=== PATIENT | female | born 1950 | race African-American/Black ===

== ENCOUNTER → 2016-10-21 | Outpatient (CLI) | payer MEDICARE | LOC: OD 16:28 | DX: Z12.4 Encounter for screening for malignant neoplasm of cervix (principal) | CPT/HCPCS: 88142 ==

== ENCOUNTER → 2016-11-06 | Outpatient (CLI) | payer MEDICARE ==
[2016-11-06 11:47] LABS: ALANINE AMINOTRANSFERASE 23 U/L (9-52); ALBUMIN 3.8 g/dL (3.5-5.0); ALKALINE PHOSPHATASE 80 U/L (38-126); ANION GAP 10 (5-19); ASPARTATE AMINO TRANSFERASE 17 U/L (14-36); BILIRUBIN,DIRECT 0.3 mg/dL (0.0-0.4); BILIRUBIN,TOTAL 0.4 mg/dL (0.2-1.3); BLOOD UREA NITROGEN 25 mg/dL (7-20); CALCIUM 9.4 mg/dL (8.4-10.2); CARBON DIOXIDE 24 mmol/L (22-30); CHLORIDE 107 mmol/L (98-107); CHOLESTEROL 175.23 mg/dL (0-200); CREATININE RESULT 1.22 mg/dL (0.52-1.25); Direct HDL 56 mg/dL (>40); GLUCOSE 102 mg/dL (75-110); POTASSIUM 4.5 mmol/L (3.6-5.0); SODIUM 141.3 mmol/L (137-145); TOTAL PROTEIN 7.7 g/dL (6.3-8.2); TRIGLYCERIDES 133 mg/dL (<150)
[2016-11-06 11:58] LABS: DIRECT LDL 103 mg/dL (<100)
== END ==
LOC: OD 09:40
DX: Z01.419 Encounter for gynecological examination (general) (routine) without abnormal findings (principal); R73.09 Other abnormal glucose; Z13.1 Encounter for screening for diabetes mellitus; Z13.228 Encounter for screening for other metabolic disorders; E78.00 Pure hypercholesterolemia, unspecified
CPT/HCPCS: 36415; 80053; 80061; 83036

== ENCOUNTER → 2017-02-03 | Outpatient (CLI) | payer MEDICARE ==
--- NOTE | 2017-02-03 19:16 | WOMENS IMAGING REPORT ---
EXAM DESCRIPTION: 3D SCREENING MAMMO BILAT COMPLETED DATE/TIME: 02/03/2017 7:27 am REASON FOR STUDY: SCREENING MAMMO Z12.31 ENCNTR SCREEN MAMMOGRAM FOR MALIGNANT NEOPLASM OF RANDEE COMPARISON: Multiple since 2008 TECHNIQUE: Standard craniocaudal and mediolateral oblique views of each breast recorded using digita l acquisition and breast tomosynthesis. LIMITATIONS: None. FINDINGS: Findings present which are benign by mammographic criteria. No suspicious masses, calcifi cations or architectural distortion. Pertinent benign findings: Benign calcified left breast fibroadenoma 12 o'clock position Read with the assistance of CAD. .[facility] - R2 Cenova Version 1.3 .[facility] - R2 Cenova Version 1.3 .[facility] - R2 Cenova Version 2.4 .[facility] [place] R2 Cenova Version 2.4 .[facility] - R2 System Administrator Version 9.2 Benign mammographic findings may include one or more of the following: Smooth masses, popcorn/rim/co arse calcifications, asymmetries, post-procedure changes, and lesions with long-standing stability. IMPRESSION: BENIGN MAMMOGRAPHIC FINDINGS. BIRADS 2 BREAST DENSITY: b. There are scattered areas of fibroglandular density. BIRAD: 2 BENIGN FINDING(S) RECOMMENDATION: RECOMMENDATION: ROUTINE SCREENING Please continue yearly bilateral screening tomosynthesis in January 2018 COMMENT: The patient has been notified of the results by letter per MQSA requirements. Additional no tification policies are in place for contacting patient with suspicious or incomplete findings. Quality ID #[id number]: The [employer] recommends an annual screening mammogram for women aged 40 years or over. This facility utilizes a reminder system to ensure that all patients receive reminder letters, and/or direct phone calls for appointments. This includes reminders for routine scr eening mammograms, diagnostic mammograms, or other Breast Imaging Interventions when appropriate. Th is patient will be placed in the appropriate reminder system. The [employer] (ACR) has developed recommendations for screening MRI of the breast s in certain patient populations, to be used in conjunction with mammography. Breast MRI surveillanc e may be appropriate for women with more than 20% lifetime risk of developing breast cancer as deter mined by genetic testing, significant family history of the disease, or history of mantle radiation f or Hodgkins Disease. ACR Practice Guidelines 2008. DBT Technology DBT is a type of tomographic mammography. With conventional mammography, overlapping breast tissue ma y make lesions difficult to detect, even with good compression. DBT uses an x-ray tube that rotates a round the breast, taking images at different angles. These images are then combined to create thin sl ices of the breast that the radiologist can view as a 3D reconstruction. The GrabCAD unit can perform full-field digital mammograms (2D imaging); or DBT (3D imaging); or both, in a combination mode that quickly performs both the mammogram and the tomosynthesis scan while the breast is still compressed. PQRS 6045F: Fluoroscopic imaging is not utilized for breast tomosynthesis. TECHNICAL DOCUMENTATION: FINDING NUMBER: (1) ASSESSMENT: (1) JOB ID: [id number] [employer]- All Rights Reserved
== END ==
LOC: WI 06:54
DX: Z12.31 Encounter for screening mammogram for malignant neoplasm of breast (principal)
CPT/HCPCS: 77063; G0202; 77067

== ENCOUNTER → 2018-02-15 | Outpatient (CLI) | payer MEDICARE ==
--- NOTE | 2018-02-16 15:18 | WOMENS IMAGING REPORT ---
EXAM DESCRIPTION: 3D SCREENING MAMMO BILAT COMPLETED DATE/TIME: 02/15/2018 10:32 am REASON FOR STUDY: BILATERAL SCREENING MAMMO/Z12.31 Z12.31 ENCNTR SCREEN MAMMOGRAM FOR MALIGNANT EDDI PLASM OF RANDEE COMPARISON: Multiple since 2008 TECHNIQUE: Standard craniocaudal and mediolateral oblique views of each breast recorded using digita l acquisition and breast tomosynthesis. LIMITATIONS: None. FINDINGS: Findings present which are benign by mammographic criteria. No suspicious masses, calcifi cations or architectural distortion. Pertinent benign findings: Stable benign calcified fibroadenoma left breast 12 o'clock position Read with the assistance of CAD. .[facility] - R2 Cenova Version 1.3 .[facility] Imaging - R2 Cenova Version 1.3 .[facility] - R2 Cenova Version 2.4 .[facility] - R2 Cenova Version 2.4 .[facility] - R2 Rehabilitation Caseworker Version 9.2 Benign mammographic findings may include one or more of the following: Smooth masses, popcorn/rim/co arse calcifications, asymmetries, post-procedure changes, and lesions with long-standing stability. IMPRESSION: BENIGN MAMMOGRAPHIC FINDINGS. BIRADS 2 BREAST DENSITY: b. There are scattered areas of fibroglandular density. BIRAD: 2 BENIGN FINDING(S) RECOMMENDATION: RECOMMENDATION: ROUTINE SCREENING Please continue yearly bilateral screening mammography/tomosynthesis in January 2019 COMMENT: The patient has been notified of the results by letter per SA requirements. Additional no tification policies are in place for contacting patient with suspicious or incomplete findings. Quality ID #225: The [employer] recommends an annual screening mammogram for women aged 40 years or over. This facility utilizes a reminder system to ensure that all patients receive reminder letters, and/or direct phone calls for appointments. This includes reminders for routine scr eening mammograms, diagnostic mammograms, or other Breast Imaging Interventions when appropriate. Th is patient will be placed in the appropriate reminder system. The [employer] (ACR) has developed recommendations for screening MRI of the breast s in certain patient populations, to be used in conjunction with mammography. Breast MRI surveillanc e may be appropriate for women with more than 20% lifetime risk of developing breast cancer as deter mined by genetic testing, significant family history of the disease, or history of mantle radiation f or Hodgkins Disease. ACR Practice Guidelines 2008. DBT Technology DBT is a type of tomographic mammography. With conventional mammography, overlapping breast tissue ma y make lesions difficult to detect, even with good compression. DBT uses an x-ray tube that rotates a round the breast, taking images at different angles. These images are then combined to create thin sl ices of the breast that the radiologist can view as a 3D reconstruction. The Hologic unit can perform full-field digital mammograms (2D imaging); or DBT (3D imaging); or both, in a combination mode that quickly performs both the mammogram and the tomosynthesis scan while the breast is still compressed. PQRS 6045F: Fluoroscopic imaging is not utilized for breast tomosynthesis. TECHNICAL DOCUMENTATION: FINDING NUMBER: (1) ASSESSMENT: (1) JOB ID: [id number] [employer]- All Rights Reserved Reading location - IP/workstation name: [email or web address]
== END ==
LOC: WI 09:22
PROVIDERS: ATTEND Internal Medicine
DX: Z12.31 Encounter for screening mammogram for malignant neoplasm of breast (principal)
CPT/HCPCS: 77063; 77067

== ENCOUNTER 2019-01-22 22:24 | Emergency (ER) | payer MEDICARE ==
[2019-01-22] MEDS ORDERED: TRAMADOL HCL 50 MG TABLET PO ONE (22:48)
[2019-01-22] MEDS ORDERED: PREDNISONE 20 MG TABLET PO ONE (22:48)
--- NOTE | 2019-01-22 22:49 | ER Document Report ---
ED General - General Chief Complaint: Wrist Injury Stated Complaint: LEFT ARM PAIN Time Seen by Provider: 01/22/19 22:39 Primary Care Provider: MARGIE COPE MD [Primary Care Provider] - Follow up as needed Notes: Patient is a 68-year-old female that presents to the emergency department for chief complaint of left wrist pain. Patient reports that she has been having pain in her left wrist, for several weeks, but it got worse over the past few days, she tried heating pad and stie-gxw-qhndrop medications without much relief of her pain so she decided come to the emergency department. She cannot think of any particular trauma. Her daughter thinks that she may be having carpal tunnel syndrome. She is been having some tingling in her thumb index and middle finger of the left hand. She currently rates her pain as a 6 out of 10 describes as an aching sensation that does radiate into her hand. She is noticed a little bit of swelling to the area, but again no injury. Denies any recent fevers, chills, chest pain, shortness of breath, nausea, vomiting or abdominal pain. Past Medical History: Hypertension, obesity Past Surgical History: Denies any recent or pertinent surgical history Social History: Lives at home with family, denies tobacco, alcohol or drug use. Family History: Reviewed and noncontributory for presenting illness Allergies: Reviewed, see documented allergy list. REVIEW OF SYSTEMS: Other than noted above, the 12 point review of systems was reviewed with the patient and were negative, all pertinent findings are included in the HPI. PHYSICAL EXAMINATION: Vital signs reviewed, nursing noted reviewed. GENERAL: Elderly, obese female, no acute distress but appears to be in mild pain. HEAD: Atraumatic, normocephalic. EYES: Eyes appear normal, extraocular movements intact, sclera anicteric, conjunctiva are normal. ENT: nares patent, oropharynx clear without exudates. Moist mucous membranes. NECK: Normal range of motion, supple without lymphadenopathy LUNGS: Breath sounds clear to auscultation bilaterally and equal. No wheezes rales or rhonchi. HEART: Regular rate and rhythm without murmurs ABDOMEN: Soft, nontender, normoactive bowel sounds. No rebound, guarding, or rigidity. No masses appreciated. EXTREMITIES: The left wrist is tender to palpate, but no gross deformity, there is no ecchymosis or edema appreciated on exam, she does have a positive Tinel sign on the left, however her sensation is intact and equal bilaterally in all the fingers, cap refill less than 3 seconds. Distal pulses are +2/4 bilaterally in all extremities. The rest the patient's extremity exam is grossly unremarkable with the exception of chronic bilateral lower extremity edema that is equal, and 2+. NEUROLOGICAL: No focal neurological deficits. Moves all extremities spontaneously Motor and sensory grossly intact on exam. PSYCH: Normal mood, normal affect. SKIN: Warm, Dry, normal turgor, no rashes or lesions noted on exposed skin TRAVEL OUTSIDE OF THE [place] IN LAST 30 DAYS: No - Related Data Allergies/Adverse Reactions: No Known Allergies Allergy (Unverified 01/22/19 22:33) Past Medical History - Social History Smoking Status: Never Smoker Family History: Reviewed & Not Pertinent Patient has suicidal ideation: No Patient has homicidal ideation: No - Past Medical History Cardiac Medical History: Reports: Hx Hypertension Physical Exam - Vital signs Vitals: BP Pulse Ox 149/93 H 96 01/22/19 22:30 01/22/19 22:30 Course - Re-evaluation Re-evalutation: Patient seen and examined, vital signs reviewed, patient's clinical exam seems most consistent with carpal tunnel syndrome, x-rays are negative of her wrist with the exception of arthritis noted. Patient be placed in a cock-up splint, given prednisone, and tramadol for pain. She is advised to follow-up with orthopedics if her symptoms are not improving. Patient was agreed with this plan of care and discharged home. - Vital Signs Vital signs: Temp Pulse Resp BP Pulse Ox 98.8 F 18 149/93 H 97 01/22/19 22:41 01/22/19 22:31 01/22/19 22:30 01/22/19 22:31 Discharge - Discharge Clinical Impression: Left wrist pain Condition: Stable Disposition: HOME, SELF-CARE Instructions: Carpal Tunnel Syndrome ([facility]) Prescriptions: Prednisone 40 mg PO DAILY #16 tablet Tramadol HCl [Ultram] 50 mg PO Q8H PRN #15 tablet PRN Reason: wrist pain Referrals: MARGIE COPE MD [Primary Care Provider] - Follow up as needed ORLANDO ROSALES JR, DO [ACTIVE PROVISIONAL STAFF] - Follow up in 3-5 days
[2019-01-22] MEDS ORDERED: HYDROCODONE/ACETAMINOPHEN 5-325 MG (6 TAB/ER DISP) PO PRN (23:12)
--- NOTE | 2019-01-22 23:21 | RADIOLOGY REPORT (SQ) ---
EXAM DESCRIPTION: XR WRIST 3 OR MORE VIEWS COMPLETED DATE/TME: 01/22/2019 22:33 CLINICAL HISTORY: 68 years, Female, swelling, bone tenderness COMPARISON: None. NUMBER OF VIEWS: TECHNIQUE: LIMITATIONS: None. FINDINGS: 3 views of the left wrist were obtained. There are degenerative changes involving the radiocarpal joint. There is calcification involving the triangular fibrocartilage. There are degenerative changes involving the first carpometacarpal joint. No fracture or dislocation. IMPRESSION: Degenerative changes as described. 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 copyright 2010 [employer]- All Rights Reserved
[2019-01-22 23:39] VITALS: BP 145/97
== END 2019-01-22 23:36 | disposition home or self-care (01) ==
LOC: ER 22:24
DX: M25.532 Pain in left wrist (principal); I10 Essential (primary) hypertension; E66.9 Obesity, unspecified
CPT/HCPCS: 99283; 73110; L3908 ×2; A9270 ×3; J7512

== ENCOUNTER → 2019-03-08 | Outpatient (CLI) | payer MEDICARE ==
--- NOTE | 2019-03-08 09:55 | WOMENS IMAGING REPORT ---
EXAM DESCRIPTION: 3D SCREENING MAMMO BILAT COMPLETED DATE/TIME: 03/08/2019 8:30 am REASON FOR STUDY: Z12.31 ENCOUNTER FOR SCREENING MAMMOGRAM FOR MALIGNANT NEOPLASM OF BREAST Z12.31 ENCNTR SCREEN MAMMOGRAM FOR MALIGNANT NEOPLASM OF RANDEE COMPARISON: 2015- 2017 EXAM PARAMETERS: Standard craniocaudal and mediolateral oblique views of each breast recorded using digital acquisition and breast tomosynthesis. Read with the assistance of CAD. .[facility] - [employer] Television Host Version 9.2 LIMITATIONS: None. FINDINGS: Findings present which are benign by mammographic criteria. No suspicious masses, calcific ations or architectural distortion. Pertinent benign findings: Left fibroadenoma. Benign mammographic findings may include one or more of the following: Smooth masses, popcorn/rim/coa rse calcifications, asymmetries, post-procedure changes, and lesions with long-standing stability. IMPRESSION: BENIGN MAMMOGRAPHIC FINDINGS. BIRADS 2 BREAST DENSITY: b. There are scattered areas of fibroglandular density. BIRAD: ASSESSMENT: 2 BENIGN FINDING(S) RECOMMENDATION: ROUTINE SCREENING COMMENT: The patient has been notified of the results by letter per SA requirements. Additional no tification policies are in place for contacting patient with suspicious or incomplete findings. Quality ID #[id number]: The [employer] recommends an annual screening mammogram for women aged 40 years or over. This facility utilizes a reminder system to ensure that all patients receive reminder letters, and/or direct phone calls for appointments. This includes reminders for routine scr eening mammograms, diagnostic mammograms, or other Breast Imaging Interventions when appropriate. Th is patient will be placed in the appropriate reminder system. TECHNICAL DOCUMENTATION: FINDING NUMBER: (1) ASSESSMENT: (1) JOB ID: [id number] [employer]- All Rights Reserved Reading location - IP/workstation name: [email or web address]
== END ==
LOC: WI 07:47
PROVIDERS: ATTEND Internal Medicine
DX: Z12.31 Encounter for screening mammogram for malignant neoplasm of breast (principal)
CPT/HCPCS: 77063; 77067

== ENCOUNTER 2019-08-31 01:42 | Inpatient (IN) | payer MEDICARE ==
[2019-08-31] MEDS ORDERED: IPRATROPIUM/ALBUTEROL 0.5-2.5 MG/3 ML AMPUL NEB ONE ×2 (01:50→02:05)
[2019-08-31] MEDS ORDERED: METHYLPREDNISOLONE INJ 125 MG/2 ML SDV IV ONE (02:06)
[2019-08-31 02:19] LABS: ABSOLUTE BASOPHILS # (AUTO) 0.1 10^3/uL (0.0-0.2); ABSOLUTE EOSINOPHILS # (AUTO) 0.2 10^3/uL (0.0-0.6); ABSOLUTE LYMPHOCYTES (AUTO) 3.7 10^3/uL (0.5-4.7); ABSOLUTE MONOCYTES (AUTO) 0.9 10^3/uL (0.1-1.4); ABSOLUTE NEUT (AUTO) 2.2 10^3/uL (1.7-8.2); BASOPHILS % (AUTO) 0.8 % (0-2); EOSINOPHILS % (AUTO) 3.2 % (0-6); HEMATOCRIT 37.4 % (36.0-47.0); HEMOGLOBIN 12.5 g/dL (12.0-15.5); MEAN CORPUSCULAR HEMOGLOBIN 29.5 pg (27.0-33.4); MEAN CORPUSCULAR HGB CONC 33.5 g/dL (32.0-36.0); MEAN CORPUSCULAR VOLUME 88 fl (80-97); MONOCYTES % (AUTO) 13.1 % (3-13); PLATELET COUNT 223 10^3/uL (150-450); RED BLOOD COUNT 4.24 10^6/uL (3.72-5.28); RED CELL DISTRIBUTION WIDTH 15.7 % (11.5-14.0); SEGMENTED NEUTROPHILS % (AUTO) 30.9 % (42-78); TOTAL CELLS COUNTED % (AUTO) 100 %; WHITE BLOOD COUNT 7.1 10^3/uL (4.0-10.5)
[2019-08-31 02:36] LABS: ALBUMIN 3.9 g/dL (3.5-5.0); ALKALINE PHOSPHATASE 133 U/L (38-126); ANION GAP 11 (5-19); ASPARTATE AMINO TRANSFERASE 72 U/L (14-36); BILIRUBIN,TOTAL 0.5 mg/dL (0.2-1.3); BLOOD UREA NITROGEN 30 mg/dL (7-20); CALCIUM 8.9 mg/dL (8.4-10.2); CARBON DIOXIDE 25 mmol/L (22-30); CHLORIDE 104 mmol/L (98-107); GLUCOSE 174 mg/dL (75-110); POTASSIUM 3.8 mmol/L (3.6-5.0); TOTAL PROTEIN 7.6 g/dL (6.3-8.2)
[2019-08-31 02:49] LABS: TROPONIN I 0.05 ng/mL
[2019-08-31] MEDS ORDERED: FUROSEMIDE INJ/PF 100 MG/10 ML SDV IV ONE (03:00)
--- NOTE | 2019-08-31 03:15 | RADIOLOGY REPORT (SQ) ---
CLINICAL INDICATION: sob cough. TECHNIQUE: A single portable AP view was obtained of the chest at 0249 hours. COMPARISON: None available. FINDINGS: The cardiomediastinal silhouette is enlarged. The lungs demonstrate chronic changes. Crowding at the bases. No focal dense consolidation. No significant pleural fluid. The visualized bones are unremarkable. IMPRESSION: Chronic changes. Mild crowding at the bases..
[2019-08-31] MEDS ORDERED: HEPARIN SOD (PORCINE) 1,000 UNIT/ML 10 ML VIAL IV ONE (03:50)
[2019-08-31] MEDS ORDERED: HEPARIN SODIUM,PORCINE/D5W 25,000 UNIT/250 ML RTUINJ IV PRN (03:51)
[2019-08-31 03:59] LABS: PROTHROMBIN TIME 14.2 SEC (11.4-15.4)
[2019-08-31 04:00] LABS: PARTIAL THROMBOPLASTIN TIME 25.2 SEC (23.5-35.8)
[2019-08-31] MEDS ORDERED: ASPIRIN 81 MG TABLET, CHEWABLE PO ONE (04:10)
--- NOTE | 2019-08-31 04:47 | ER Document Report ---
ED General - General Chief Complaint: Respiratory Distress Stated Complaint: SHORTNESS OF BREATH TRAVEL OUTSIDE OF THE [place] IN LAST 30 DAYS: No - HPI Notes: 68-year-old female history of COPD (no home O2, few exacerbations in the past, never BiPAP or intubation), hypertension, hyperlipidemia, lymphedema of left leg presents with sudden onset shortness of breath just prior to activating EMS. Patient denies having any recent cough, fever, chest pain, cardiac history, change in her chronic left lower extremity edema, PE/DVT history. History limited by respiratory distress. - Related Data Allergies/Adverse Reactions: No Known Allergies Allergy (Unverified 01/22/19 22:33) Home Medications: valsartan 320 mgdaily. hydrochlorothiazide 25 mg daily. amlodipine 10 mg daily Past Medical History - General Information source: Patient - Social History Smoking Status: Never Smoker Frequency of alcohol use: None Drug Abuse: None Family History: Reviewed & Not Pertinent Patient has homicidal ideation: No - Past Medical History Cardiac Medical History: Reports: Hx Hypertension Review of Systems - Review of Systems -: Yes ROS unobtainable due to patient's medical condition Physical Exam - Vital signs Vitals: Pulse Ox 94 08/31/19 01:49 - Notes Notes: PHYSICAL EXAMINATION: GENERAL: Obese middle-aged female appearing younger than stated age in severe respiratory distress HEAD: Atraumatic, normocephalic. EYES: Pupils equal round and appropriate constriction, sclera anicteric, conjunctiva are normal. ENT: nares patent, moist mucous membranes. NECK: Normal range of motion, supple without lymphadenopathy LUNGS: Decreased air movement in all lung chiang with expiratory wheezing, very tachypneic, struggling to say few word sentences, managing secretions, no tripoding HEART: Regular rhythm, tachycardic rate, no murmurs rubs or gallops ABDOMEN: Soft, nontender, no guarding, no masses, no CVAT EXTREMITIES: Normal range of motion, diffuse edema of entire left leg with overlying skin thickening consistent with chronic lymphedema NEUROLOGICAL: Awake, alert, speech appropriate for clinical status, moves all extremities spontaneously. PSYCH: Normal mood, normal affect. SKIN: Warm, Dry, normal turgor, no rashes or lesions noted. Course - Re-evaluation Re-evalutation: 08/31/19 01:46 History limited by respiratory distress. Symptoms improved with serial labs, mag, and IM epi given by EMS and wheezing on exam with poor air movement suggestive of COPD. But patient says that her COPD exacerbations have never been this bad in the past and has never required positive pressure ventilation. Rule out ACS, acute pulmonary edema/new onset CHF, PE. Patient quickly improved on BiPAP. 08/31/19 04:47 Patient remains greatly improved on BiPAP, work of breathing is significantly improved, no signs of impending need for intubation, but will continue to monitor closely. Patient became very tachypneic when RN placed her on bedpan s till on BiPAP which suggest that patient is not ready to be weaned off of BiPAP yet. Patient's BNP markedly elevated and troponin mildly elevated, which could represent new onset of CHF or the secondary to PE causing right heart strain. Given that patient remains improved and hemodynamically stable the risk of patient lying flat and the likelihood of having significant motion artifact if patient goes to CT a on BiPAP made decision to anticoagulate with heparin pending imaging during daytime, possibly V/Q. I spoke to patient's daughter at patient's request less than 1 hour after her arrival and updated her on her status. - Vital Signs Vital signs: Temp Pulse Resp BP Pulse Ox 97.1 F 23 H 148/80 H 98 08/31/19 02:13 08/31/19 04:55 08/31/19 02:19 08/31/19 04:55 - Laboratory Result Diagrams: 08/31/19 02:05 08/31/19 02:05 Laboratory results interpreted by me: 08/31/19 08/31/19 08/31/19 02:05 02:05 02:05 RDW 15.7 H Lymph % (Auto) 52.0 H Refugio % (Auto) 13.1 H Seg Neutrophils % 30.9 L D-Dimer BUN 30 H Creatinine 1.58 H Est GFR ( Amer) 39 L Est GFR (MDRD) Non-Af 32 L Glucose 174 H Phosphorus AST 72 H ALT 66 H Alkaline Phosphatase 133 H NT-Pro-B Natriuret Pep 3850 H TSH 08/31/19 08/31/19 08/31/19 02:05 02:05 02:05 RDW Lymph % (Auto) Refugio % (Auto) Seg Neutrophils % D-Dimer 2.43 H BUN Creatinine Est GFR ( Amer) Est GFR (MDRD) Non-Af Glucose Phosphorus 5.1 H AST ALT Alkaline Phosphatase NT-Pro-B Natriuret Pep TSH 6.20 H - EKG Interpretation by Me Additional EKG results interpreted by me: 08/31/19 02:10 Heart rate 100, sinus tachycardia, no significant ST elevations or depressions, T wave inversions in aVL and I, anterior Q waves. EKG obtained at 2:06 AM under incorrect name Vilma Best, report not showing up in [facility] Discharge - Discharge Clinical Impression: Respiratory failure Qualifiers: Chronicity: acute Respiratory failure complication: hypercapnia Qualified Code (s): J96.02 - Acute respiratory failure with hypercapnia Condition: Serious Disposition: ADMITTED INPATIENT Admitting Provider: [facility] Unit Admitted: [facility]
[2019-08-31 05:36] LABS: FREE T4 (FREE THYROXINE) 1.39 ng/dL (0.78-2.19)
[2019-08-31 05:49] LABS: VENOUS BLOOD BASE EXCESS -1.9 mmol/L; VENOUS BLOOD HCO3 23.9 mmol/L (20-32); VENOUS BLOOD PCO2 44.8 mmHg (35-63); VENOUS BLOOD PH 7.35 (7.30-7.42)
[2019-08-31 05:50] LABS: THYROID STIMULATING HORMONE 6.2 uIU/mL (0.47-4.68)
[2019-08-31] MEDS ORDERED: ENOXAPARIN SODIUM INJ 100 MG/1 ML DISP.SYRIN SUBCUT SCH ×2 (06:00→18:00)
[2019-08-31 06:09] LABS: PHOSPHORUS 5.1 mg/dL (2.5-4.5)
--- NOTE | 2019-08-31 06:27 | RADIOLOGY REPORT (SQ) ---
EXAM: US Retroperitoneal Complete, Renal EXAM DATE/TIME: 08/31/2019 5:43 AM CLINICAL HISTORY: The patient is 68 years old and is Female; KIDNEY FAILURE TECHNIQUE: Real-time limited ultrasound of the retroperitoneum with image documentation. COMPARISON: No relevant prior studies available. FINDINGS: LIMITATIONS: Suboptimal exam secondary to bowel gas and patient body habitus. RIGHT KIDNEY: The right kidney measures 13.1 cm in length and is increased in echogenicity. There is a simple cyst in the right kidney measuring 3.1 x 3.8 x 2.5 cm. There is a small echogenic focus in the right kidney measuring 8 mm. This may represent a focus of calcification in the renal cortex or a small intrarenal stone. No hydronephrosis. LEFT KIDNEY: The left kidney measures 15.0 cm in length and is increased in echogenicity. There is a simple cyst in the left kidney measuring 6.0 x 5.4 x 3.9 cm. There is a small echogenic focus measuring 10 mm. This may represent an intrarenal stone. No hydronephrosis. BLADDER: The urinary bladder is unremarkable. No obvious bladder mass or stone. OTHER FINDINGS: There is an area of shadowing in the region of the gallbladder fossa. The appearance suggests a gallbladder filled with stones. What appears to be the gallbladder wall is thickened, measuring 7 mm. IMPRESSION: 1. Bilateral kidneys are increased in echogenicity, suggesting chronic medical renal disease. 2. Echogenic foci in the kidneys may represent intrarenal stones. There is no hydronephrosis. 3. Bilateral simple renal cysts. 4. Area of shadowing in the region of the gallbladder fossa. The appearance suggests a gallbladder filled with stones. There is also suggestion of gallbladder wall thickening.
[2019-08-31] MEDS: ALBUTEROL SULFATE 0.083% NEB 2.5 MG/3 ML AMPUL NEB SCH ×3 (06:35→12:56)
[2019-08-31 07:09] LABS: ARTERIAL BLOOD BASE EXCESS -3.2 mmol/L; ARTERIAL BLOOD FIO2 30%; ARTERIAL BLOOD H2CO3 1.08 mmol/L (1.05-1.35); ARTERIAL BLOOD HCO3 21.2 mmol/L (20-24); ARTERIAL BLOOD O2 SATURATION 97.9 % (94-98); ARTERIAL BLOOD PH 7.39 (7.35-7.45); ARTERIAL BLOOD PO2 106.4 mmHg (80-100); ARTERIAL BLOOD TOTAL CO2 22.3 mmol/L (21-25)
[2019-08-31 07:22] LABS: APPEARANCE,URINE CLEAR; BILIRUBIN,URINE NEGATIVE (NEGATIVE); COLOR,URINE COLORLESS; GLUCOSE, URINE NEGATIVE (NEGATIVE); KETONES,URINE NEGATIVE (NEGATIVE); LEUKOCYTE ESTERASE,URINE NEGATIVE (NEGATIVE); NITRITE,URINE NEGATIVE (NEGATIVE); PROTEIN,URINE NEGATIVE (NEGATIVE); URINE SPECIFIC GRAVITY 1.005; UROBILINOGEN,URINE NEGATIVE mg/dL (<2.0)
[2019-08-31 07:38] LABS: URINE AMPHETAMINES SCREEN NEGATIVE; URINE BARBITURATES SCREEN NEGATIVE; URINE BENZODIAZEPINES SCREEN NEGATIVE; URINE COCAINE SCREEN NEGATIVE; URINE MARIJUANA (THC) SCREEN NEGATIVE; URINE METHADONE SCREEN NEGATIVE; URINE PHENCYCLIDINE SCREEN NEGATIVE
[2019-08-31 07:47] LABS: CREATINE KINASE MB 2.53 ng/mL (<4.55); TROPONIN I 0.074 ng/mL
[2019-08-31 11:46] LABS: INTERNATIONAL RATION (INR) 1.12; PROTHROMBIN TIME 14.4 SEC (11.4-15.4)
[2019-08-31 11:47] LABS: PARTIAL THROMBOPLASTIN TIME 31.9 SEC (23.5-35.8)
--- NOTE | 2019-08-31 12:01 | RADIOLOGY REPORT (SQ) ---
EXAM DESCRIPTION: NM LUNG PERFUSION SCAN IMAGES COMPLETED DATE/TIME: 08/31/2019 11:49 am REASON FOR STUDY: SOB, COUGH COMPARISON: None. RADIONUCLIDE AND DOSE: 5.5 millicuries TC-99m MAA The route of agent administration: Intravenous TECHNIQUE: Eight views of the lungs acquired following injection of MAA. LIMITATIONS: None. FINDINGS: PERFUSION: Perfusion images with normal homogenous activity and no wedge-shaped or segment al defects. OTHER: No other significant finding. IMPRESSION: NORMAL PERFUSION LUNG SCAN. TECHNICAL DOCUMENTATION: JOB ID: [id number] [employer]- All Rights Reserved Reading location - IP/workstation name: [email or web address]
[2019-08-31 12:06] LABS: CREATINE KINASE MB 2.88 ng/mL (<4.55)
[2019-08-31 12:11] LABS: TROPONIN I 0.059 ng/mL
[2019-08-31] MEDS ORDERED: ALBUTEROL SULFATE 0.083% NEB 2.5 MG/3 ML AMPUL NEB PRN (12:57)
[2019-08-31 14:25] LABS: ANION GAP 13 (5-19); BLOOD UREA NITROGEN 30 mg/dL (7-20); CALCIUM 9.5 mg/dL (8.4-10.2); CARBON DIOXIDE 22 mmol/L (22-30); CHLORIDE 104 mmol/L (98-107); GLUCOSE 195 mg/dL (75-110); POTASSIUM 3.7 mmol/L (3.6-5.0)
[2019-08-31 19:24] LABS: CREATINE KINASE MB 3.37 ng/mL (<4.55); TROPONIN I 0.047 ng/mL
--- NOTE | 2019-08-31 20:00 | PDOC H&P ---
History of Present Illness Admission Date/PCP: 08/31/19 05:17 MARGIE COPE MD History of Present Illness: MELY WILD is a 68 year old female, She came to the emergency room [facility] this morning for evaluation of shortness of breath, in the emergency room she was evaluated, she was found to be wheezing, it was assumed she has COPD, she has no history of COPD, she was treated with Solu-Medrol, bronchodilators, the breathing was supported with a noninvasive positive pressure ventilation,BIPAP, blood work demonstrated elevated B type natruretic peptide, the serum creatinine was elevated, she also was empirically started on intravenous heparin for presumptive PE. She has a history of hypertension, chronic lymphedema of the lower extremities and she is also obese. When I saw the patient the presentation was more consistent with CHF picture, she admitted to orthopnea. A transthoracic echocardiogram was done, it demonstrated dilated left ventricle, dilated left atrium, decreased ejection fraction of left ventricle suggestive of acute systolic heart failure this is new onset for this patient, she has no history of cardiomyopathy. Past Medical History Cardiac Medical History: Reports: Hypertension, Other - Chronic lymphedema of the lower extremities Endocrine Medical History: Reports: Obesity Social History Smoking Status: Never Smoker Frequency of Alcohol Use: None Hx Recreational Drug Use: No Drugs: None Hx Prescription Drug Abuse: No Family History Family History: Reviewed & Not Pertinent Parental Family History Reviewed: Yes Children Family History Reviewed: Yes Sibling(s) Family History Reviewed.: Yes Medication/Allergy Home Medications: Hydrochlorothiazide [Hydrodiuril 25 mg Tablet] 25 mg PO QAM 08/31/19 RX: Amlodipine Besylate [Norvasc 10 mg Tablet] 10 mg PO DAILY 08/31/19 RX: Valsartan 320 mg PO DAILY 08/31/19 Allergies/Adverse Reactions: No Known Allergies Allergy (Unverified 01/22/19 22:33) Review of Systems Constitutional: ABSENT: chills, fever(s), headache(s), weight gain, weight loss Eyes: ABSENT: visual disturbances Ears: ABSENT: hearing changes Cardiovascular: PRESENT: dyspnea on exertion, edema, orthropnea Respiratory: ABSENT: cough, hemoptysis Gastrointestinal: ABSENT: abdominal pain, constipation, diarrhea, hematemesis, hematochezia, nausea, vomiting Genitourinary: ABSENT: dysuria, hematuria Musculoskeletal: ABSENT: joint swelling Integumentary: ABSENT: rash, wounds Neurological: ABSENT: abnormal gait, abnormal speech, confusion, dizziness, focal weakness, syncope Psychiatric: ABSENT: anxiety, depression, homidical ideation, suicidal ideation Endocrine: ABSENT: cold intolerance, heat intolerance, menstrual abnormalities, polydipsia, polyuria Hematologic/Lymphatic: ABSENT: easy bleeding, easy bruising, lymphadenopathy Physical Exam Vital Signs: Temp Pulse Resp BP Pulse Ox 97.7 F 69 18 145/72 H 99 08/31/19 13:32 08/31/19 16:18 08/31/19 16:18 08/31/19 13:32 08/31/19 13:32 Intake & Output 08/30/19 08/31/19 09/01/19 06:59 06:59 06:59 Intake Total 339 Output Total 1000 700 Balance -1000 -361 Weight 111.13 kg 108.4 kg General appearance: PRESENT: morbidly obese Head exam: PRESENT: atraumatic, normocephalic Eye exam: PRESENT: conjunctiva pink, EOMI, PERRLA Ear exam: PRESENT: normal external ear exam Mouth exam: PRESENT: moist, tongue midline Neck exam: PRESENT: full ROM Respiratory exam: PRESENT: crackles Cardiovascular exam: PRESENT: RRR, +S1, +S2, systolic murmur, tachycardia Vascular exam: PRESENT: normal capillary refill GI/Abdominal exam: PRESENT: normal bowel sounds, soft Rectal exam: PRESENT: deferred Extremities exam: PRESENT: pedal edema, other - Lymphedema of lower extremities, bilaterally Neurological exam: PRESENT: alert, CN II-XII grossly intact Psychiatric exam: PRESENT: appropriate affect, normal mood Skin exam: PRESENT: dry, intact, warm Results Laboratory Results: 08/31/19 02:05 08/31/19 10:45 08/31/19 08/31/19 08/31/19 02:05 02:05 02:05 WBC 7.1 RBC 4.24 Hgb 12.5 Hct 37.4 MCV 88 MCH 29.5 MCHC 33.5 RDW 15.7 H Plt Count 223 Seg Neutrophils % 30.9 L Carbonic Acid HCO3/H2CO3 Ratio ABG pH ABG pCO2 ABG pO2 ABG HCO3 ABG O2 Saturation ABG Base Excess VBG pH VBG pCO2 VBG HCO3 VBG Base Excess FiO2 Sodium 139.9 Potassium 3.8 Chloride 104 Carbon Dioxide 25 Anion Gap 11 BUN 30 H Creatinine 1.58 H Est GFR ( Amer) 39 L Glucose 174 H Calcium 8.9 Phosphorus Magnesium Total Bilirubin 0.5 AST 72 H Alkaline Phosphatase 133 H Ammonia Total Protein 7.6 Albumin 3.9 Amylase TSH 6.20 H Free T4 1.39 Urine Color Urine Appearance Urine pH Ur Specific [place] Urine Protein Urine Glucose (UA) Urine Ketones Urine Blood Urine Nitrite Ur Leukocyte Esterase Urine WBC (Auto) 08/31/19 08/31/19 08/31/19 02:05 05:35 06:45 WBC RBC Hgb Hct MCV MCH MCHC RDW Plt Count Seg Neutrophils % Carbonic Acid HCO3/H2CO3 Ratio ABG pH ABG pCO2 ABG pO2 ABG HCO3 ABG O2 Saturation ABG Base Excess VBG pH 7.35 VBG pCO2 44.8 VBG HCO3 23.9 VBG Base Excess -1.9 FiO2 Sodium Potassium Chloride Carbon Dioxide Anion Gap BUN Creatinine Est GFR ( Amer) Glucose Calcium Phosphorus 5.1 H Magnesium 2.2 Total Bilirubin AST Alkaline Phosphatase Ammonia < 8.7 L Total Protein Albumin Amylase 74 TSH Free T4 Urine Color Urine Appearance Urine pH Ur Specific [place] Urine Protein Urine Glucose (UA) Urine Ketones Urine Blood Urine Nitrite Ur Leukocyte Esterase Urine WBC (Auto) 08/31/19 08/31/19 08/31/19 06:45 06:45 10:45 WBC RBC Hgb Hct MCV MCH MCHC RDW Plt Count Seg Neutrophils % Carbonic Acid 1.08 HCO3/H2CO3 Ratio 19:1 ABG pH 7.39 ABG pCO2 36.0 ABG pO2 106.4 H ABG HCO3 21.2 ABG O2 Saturation 97.9 ABG Base Excess -3.2 VBG pH VBG pCO2 VBG HCO3 VBG Base Excess FiO2 30% Sodium 138.8 Potassium 3.7 Chloride 104 Carbon Dioxide 22 Anion Gap 13 BUN 30 H Creatinine 1.48 H Est GFR ( Amer) 42 L Glucose 195 H Calcium 9.5 Phosphorus Magnesium Total Bilirubin AST Alkaline Phosphatase Ammonia Total Protein Albumin Amylase TSH Free T4 Urine Color COLORLESS Urine Appearance CLEAR Urine pH 5.0 Ur Specific [place] 1.005 Urine Protein NEGATIVE Urine Glucose (UA) NEGATIVE Urine Ketones NEGATIVE Urine Blood NEGATIVE Urine Nitrite NEGATIVE Ur Leukocyte Esterase NEGATIVE Urine WBC (Auto) 0 08/31/19 08/31/19 08/31/19 02:05 06:45 06:45 Creatine Kinase 182 H CK-MB (CK-2) 2.53 Troponin I 0.050 0.074 NT-Pro-B Natriuret Pep 3850 H 08/31/19 08/31/19 08/31/19 10:45 10:45 18:35 Creatine Kinase 168 H 173 H CK-MB (CK-2) 2.88 Troponin I 0.059 NT-Pro-B Natriuret Pep 08/31/19 18:35 Creatine Kinase CK-MB (CK-2) 3.37 Troponin I 0.047 NT-Pro-B Natriuret Pep Impressions: Lung Scan-VQ NM 08/31/19 00:00 IMPRESSION: NORMAL PERFUSION LUNG SCAN. Renal Ultrasound 08/31/19 00:00 IMPRESSION: 1. Bilateral kidneys are increased in echogenicity, suggesting chronic medical renal disease. 2. Echogenic foci in the kidneys may represent intrarenal stones. There is no hydronephrosis. 3. Bilateral simple renal cysts. 4. Area of shadowing in the region of the gallbladder fossa. The appearance suggests a gallbladder filled with stones. There is also suggestion of gallbladder wall thickening. Chest X-Ray 08/31/19 02:03 IMPRESSION: Chronic changes. Mild crowding at the bases.. Assessment & Plan - Diagnosis (1) Acute systolic heart failure Is this a current diagnosis for this admission?: Yes Plan: Patient presented with acute respiratory distress, she requires noninvasive positive pressure ventilation, BiPAP, 2D echo consistent with CHF, this is new onset for this patient, start Coreg start Entresto, consult cardiology (2) CKD (chronic kidney disease) Qualifiers: Chronic kidney disease stage: unspecified stage Qualified Code(s): N18.9 - Chronic kidney disease, unspecified Is this a current diagnosis for this admission?: Yes Plan: Kidney ultrasound negative for hydronephrosis, suggest CKD, medical renal disease (3) Acute hypoxemic respiratory failure Is this a current diagnosis for this admission?: Yes Plan: This is most likely from acute systolic heart failure, VQ scan negative for PE, she required initially BiPAP, no longer requiring BiPAP
[2019-08-31] MEDS: SACUBITRIL/VALSARTAN 49 MG/51 MG TABLET PO SCH (21:32)
[2019-08-31] MEDS: CARVEDILOL 3.125 MG TABLET PO SCH (21:32)
[2019-08-31] MEDS: ENOXAPARIN SODIUM INJ 40 MG/0.4 ML DISP.SYRIN SUBCUT SCH (21:33)
[2019-08-31] MEDS: FUROSEMIDE INJ/PF 40 MG/4 ML SDV IV SCH (21:33)
--- NOTE | 2019-08-31 21:58 | XCELERA REPORT ---
[address] [address] Transthoracic Echocardiogram Report Name: MELY WILD Age: 68 yrs Gender: Female : 1950 Patient Status: Inpatient Patient Location: [address] [place] [address] Study Date: 08/31/2019 10:23 AM Height: 66 in Weight: 245 lb BSA: 2.2 m2 Procedure: A two-dimensional transthoracic echocardiogram with color flow and Doppler was performed. Study Quality: Fair. Reason For Study: CHF History: CHF. Ordering Physician: MARGIE COPE Performed By: Lisa Olvera Interpretation Summary The left ventricle is mildly dilated. There is mild concentric left ventricular hypertrophy. LV EF is 40% Left ventricular systolic function is moderately reduced. : By tissue dopplers There is moderate global hypokinesis of the left ventricle. There is no thrombus. No ASD ,VSD , or PFO seen. The right ventricle is mildly dilated. The right atrium is normal. The left atrial size is normal. There is no evidence of mitral valve prolapse. There is no vegetation seen on the mitral valve. There is no mitral valve stenosis. There is a moderate to severe amount of mitral regurgitation There is no aortic valve stenosis There is no LVOT obstruction. There is no aortic valvular vegetation. There is a trace to mild amount of aortic regurgitation There is no tricuspid stenosis. There is a moderate amount of tricuspid regurgitation There is moderate pulmonary hypertension by echo RVSP is 52 to 57 mm of HG , with RA mean of 10 to 15. There is no pulmonic valvular stenosis. There is a trace amount of pulmonic regurgitation The aortic root is normal size. The inferior vena cava appeared normal and decreased < 50% with respiration (RAP 10-15 mmHg) There is no pericardial effusion. MMode/2D Measurements & Calculations RVDd: 3.2 cm LVIDd: 6.4 cm FS: 21.6 % Ao root diam: 2.8 cm IVSd: 1.2 cm LVIDs: 5.0 cm EDV(Teich): 205.9 ml Ao root area: 6.2 cm2 LVPWd: 1.2 cm ESV(Teich): 117.6 ml LA dimension: 3.6 cm EF(Teich): 42.9 % Doppler Measurements & Calculations MV E max ann-marie: MV P1/2t max ann-marie: Ao V2 max: LV V1 max P.4 cm/sec 160.9 cm/sec 177.2 cm/sec 6.0 mmHg MV A max ann-marie: MV P1/2t: 33.2 msec Ao max PG: LV V1 max: 138.7 cm/sec MVA(P1/2t): 6.6 cm2 12.6 mmHg 122.9 cm/sec MV E/A: 1.2 MV dec slope: LV dP/dt: 826.0 mmHg/s 1419 cm/sec2 MV dec time: 0.12 sec PA V2 max: PI end-d ann-marie: TR max ann-marie: MV P1/2t-pr_phl: 86.9 cm/sec 125.2 cm/sec 321.2 cm/sec 33.2 msec PA max P.0 mmHg TR max P.3 mmHg Left Ventricle The left ventricle is mildly dilated. There is mild concentric left ventricular hypertrophy. LV EF is 40%. Left ventricular systolic function is moderately reduced. : By tissue dopplers. Doppler measurements suggest impaired left ventricular relaxation, which is associated with grade I/IV or mild diastolic dysfunction. There is moderate global hypokinesis of the left ventricle. There is no thrombus. No ASD ,VSD , or PFO seen. Right Ventricle The right ventricle is mildly dilated. The right ventricular systolic function is mildly reduced. Atria The right atrium is normal. The left atrial size is normal. Mitral Valve There is no evidence of mitral valve prolapse. There is no vegetation seen on the mitral valve. There is no mitral valve stenosis. There is a moderate to severe amount of mitral regurgitation. Aortic Valve There is no aortic valvular vegetation. There is no aortic valve stenosis. There is no LVOT obstruction. There is a trace to mild amount of aortic regurgitation. Tricuspid Valve There is no tricuspid stenosis. There is a moderate amount of tricuspid regurgitation. There is moderate pulmonary hypertension by echo. RVSP is 52 to 57 mm of HG , with RA mean of 10 to 15. Pulmonic Valve There is no pulmonic valvular stenosis. There is a trace amount of pulmonic regurgitation. Great Vessels The aortic root is normal size. The inferior vena cava appeared normal and decreased < 50% with respiration (RAP 10-15 mmHg). Effusions There is no pericardial effusion. : MARGIE COPE Lakshmi
[2019-09-01 05:13] LABS: HEMATOCRIT 36.2 % (36.0-47.0); HEMOGLOBIN 12.4 g/dL (12.0-15.5); MEAN CORPUSCULAR HEMOGLOBIN 29.7 pg (27.0-33.4); MEAN CORPUSCULAR HGB CONC 34.3 g/dL (32.0-36.0); MEAN CORPUSCULAR VOLUME 87 fl (80-97); PLATELET COUNT 206 10^3/uL (150-450); RED BLOOD COUNT 4.18 10^6/uL (3.72-5.28); RED CELL DISTRIBUTION WIDTH 15.4 % (11.5-14.0); WHITE BLOOD COUNT 9.8 10^3/uL (4.0-10.5)
[2019-09-01 05:40] LABS: ALBUMIN 3.9 g/dL (3.5-5.0); ALKALINE PHOSPHATASE 110 U/L (38-126); ASPARTATE AMINO TRANSFERASE 38 U/L (14-36); BILIRUBIN,TOTAL 0.6 mg/dL (0.2-1.3); CHOLESTEROL 159.77 mg/dL (0-200); TOTAL PROTEIN 7.6 g/dL (6.3-8.2); TRIGLYCERIDES 113 mg/dL (<150)
[2019-09-01 05:51] LABS: DIRECT LDL 94 mg/dL (<100)
[2019-09-01] MEDS: CARVEDILOL 3.125 MG TABLET PO SCH ×2 (06:36→17:19)
[2019-09-01] MEDS: FUROSEMIDE INJ/PF 40 MG/4 ML SDV IV SCH (09:36)
[2019-09-01] MEDS: SACUBITRIL/VALSARTAN 49 MG/51 MG TABLET PO SCH ×2 (09:36→17:19)
[2019-09-01] MEDS: ENOXAPARIN SODIUM INJ 40 MG/0.4 ML DISP.SYRIN SUBCUT SCH (09:36)
[2019-09-01 12:00] LABS: APPEARANCE,URINE CLEAR; BILIRUBIN,URINE NEGATIVE (NEGATIVE); COLOR,URINE STRAW; GLUCOSE, URINE NEGATIVE (NEGATIVE); KETONES,URINE NEGATIVE (NEGATIVE); LEUKOCYTE ESTERASE,URINE NEGATIVE (NEGATIVE); NITRITE,URINE NEGATIVE (NEGATIVE); PROTEIN,URINE NEGATIVE (NEGATIVE); URINE SPECIFIC GRAVITY 1.008; UROBILINOGEN,URINE NEGATIVE mg/dL (<2.0)
[2019-09-01] MEDS: CIPROFLOXACIN 400 MG/D5W RTU 400 MG/200 ML RTUPB IV SCH ×2 (14:27→22:04)
--- NOTE | 2019-09-01 20:08 | PDOC CONSULTATION ---
Consultation-Blank Consultation: CARDIOLOGY CONSULTATION by Dr. Gwen Russell on 09/01/2019. Patient seen at 11 AM on 09/01/2019. 60-minute spent on this patient more than 50% of time spent in direct patient care. REASON FOR CONSULTATION: Management of congestive heart failure. Consult REQUESTING PHYSICIAN: Dr. Rai. HISTORY OF PRESENT ILLNESS: Patient is a 68-year old -Greek female with known history of hypertension states that since Wednesday she has been having having sudden onset of increasing shortness of breath with PND orthopnea. There is no chest pain or discomfort there is no palpitations. There is no near- syncope or syncope. The patient denies any history of COPD and the patient is non-smoker. She was seen in the emergency room and they treated her initially for an asthmatic attack and also PE was ruled out by ventilation/perfusion scan. The patient's renal function better reduced, but the patient has no knowledge of having chronic renal insufficiency. She is not a diabetic. There is no prior history of AK or heart failure or anginal symptoms. There is no palpitations or syncope. She states that she has nightmares in the sleep off and on and also states that after a good night sleep she feels tired she also has been noted to be snoring. It is not clear if there is any witnessed apnea d uring his sleep. But the patient does have symptoms suggestive highly of obstructive sleep apnea. She has no history of diabetes mellitus or thyroid disease. She has no history of TIA or CVA. There is no prior history of pulmonary embolism. She has no fever. She has a cough which seems to be PND equal and. She states her blood pressure has been well controlled. Past Medical History Cardiac Medical History: Reports: Hypertension, Other - Chronic lymphedema of the lower extremities Endocrine Medical History: Reports: Obesity Social History Smoking Status: Never Smoker Frequency of Alcohol Use: None Hx Recreational Drug Use: No Drugs: None Hx Prescription Drug Abuse: No Family History Family History: Reviewed & Not Pertinent Parental Family History Reviewed: Yes Children Family History Reviewed: Yes Sibling(s) Family History Reviewed.: Yes Medication/Allergy Home Medications: Hydrochlorothiazide [Hydrodiuril 25 mg Tablet] 25 mg PO QAM 08/31/19 RX: Amlodipine Besylate [Norvasc 10 mg Tablet] 10 mg PO DAILY 08/31/19 RX: Valsartan 320 mg PO DAILY 08/31/19 Allergies/Adverse Reactions: No Known Allergies Allergy (Unverified 01/22/19 22:33) RESUSCITATION STATUS: The patient is a full code. Her daughter is a surrogate healthcare decision maker. Current Medications Generic Name Dose Route Start Last Admin Trade Name Freq PRN Reason Stop Dose Admin Albuterol 2.5 mg 08/31/19 12:57 Ventolin 0.083% Neb 2.5 Mg/3 Ml Ampul NEB 09/30/19 12:55 [id number] PRN SHORTNESS OF BREATH Carvedilol 3.125 mg 08/31/19 19:00 09/01/19 17:19 Coreg 3.125 Mg Tablet PO 09/30/19 18:59 3.125 mg Q12A JEFF Administration Enoxaparin Sodium 40 mg 08/31/19 20:00 09/01/19 09:36 Lovenox Inj 40 Mg/0.4 Ml Disp.Syrin SUBCUT 09/30/19 19:59 40 mg DAILY JEFF Administration Furosemide 40 mg 08/31/19 19:00 09/01/19 09:36 Lasix Inj/Pf 40 Mg/4 Ml Sdv IV 09/30/19 18:59 40 mg DAILY JEFF Administration Ciprofloxacin/Dextrose 400 mg in 200 mls @ 200 mls/hr 09/01/19 13:00 09/01/19 22:04 Cipro Rtu 400 Mg/D5w 200 Ml Premix Bag IV 09/08/19 12:59 200 mls/hr Q12 JEFF 200 mls/hr Administration Sacubitril/Valsartan 1 tab 08/31/19 20:00 09/01/19 17:19 Entresto 49 Mg/51 Mg Tablet PO 09/30/19 19:59 1 tab BID JEFF Administration Discontinued Medications Generic Name Dose Route Start Last Admin Trade Name Freq PRN Reason Stop Dose Admin Albuterol 2.5 mg 08/31/19 05:00 08/31/19 12:56 Ventolin 0.083% Neb 2.5 Mg/3 Ml Ampul NEB 09/30/19 04:59 Not Given RTQ4 JEFF Albuterol/Ipratropium Confirm 08/31/19 01:50 08/31/19 03:40 Duoneb 3 Ml Ampul Administered 08/31/19 01:51 Not Given Dose 3 ml NEB .STK-MED ONE Albuterol/Ipratropium 9 ml 08/31/19 02:05 08/31/19 03:40 Duoneb 3 Ml Ampul NEB 08/31/19 02:06 9 ml NOW ONE Administration Aspirin 324 mg 08/31/19 04:10 08/31/19 05:19 Aspirin 81 Mg Chewable Tablet PO 08/31/19 04:11 324 mg NOW ONE Administration Enoxaparin Sodium 100 mg 08/31/19 06:00 08/31/19 11:00 Lovenox Inj 100 Mg/1 Ml Disp.Syrin SUBCUT 09/30/19 05:59 Not Given Q12H JEFF Enoxaparin Sodium 100 mg 08/31/19 18:00 08/31/19 18:11 Lovenox Inj 100 Mg/1 Ml Disp.Syrin SUBCUT 09/30/19 17:59 100 mg Q12A JEFF Administration Furosemide 100 mg 08/31/19 03:00 08/31/19 03:38 Lasix Inj/Pf 100 Mg/10 Ml Sdv IV 08/31/19 03:01 100 mg NOW ONE Administration Heparin Sodium (Porcine) 5,000 unit 08/31/19 03:50 08/31/19 05:22 Heparin Inj 1,000 Unit/Ml 10 Ml Vial IV 08/31/19 03:51 8,900 unit NOW ONE Administration Heparin Sodium/Dextrose 25,000 unit in 250 mls @ 0 mls/hr 08/31/19 03:51 08/31/19 05:32 Heparin Rtu 25,000 Unit/250 Ml D5w Premix IV 09/30/19 03:50 18 unit/hr CONTINUOUS PRN 0.18 mls/hr THIS MED IS NOT "PRN" Administration Protocol Titrate Methylprednisolone Sodium Succinate 125 mg 08/31/19 02:06 08/31/19 03:40 Solu-Medrol Inj/Pf 125 Mg/2 Ml Sdv IV 08/31/19 02:07 Not Given NOW ONE Review of Systems Constitutional: ABSENT: chills, fever(s), headache(s), weight gain, weight loss Eyes: ABSENT: visual disturbances Ears: ABSENT: hearing changes Cardiovascular: PRESENT: dyspnea on exertion, edema, orthropnea Respiratory: ABSENT: cough, hemoptysis Gastrointestinal: ABSENT: abdominal pain, constipation, diarrhea, hematemesis, hematochezia, nausea, vomiting Genitourinary: ABSENT: dysuria, hematuria Musculoskeletal: ABSENT: joint swelling Integumentary: ABSENT: rash, wounds Neurological: ABSENT: abnormal gait, abnormal speech, confusion, dizziness, focal weakness, syncope Psychiatric: ABSENT: anxiety, depression, homidical ideation, suicidal ideation Endocrine: ABSENT: cold intolerance, heat intolerance, menstrual abnormalities, polydipsia, polyuria Hematologic/Lymphatic: ABSENT: easy bleeding, easy bruising, lymphadenopathy PHYSICAL EXAMINATION: The patient is moderately obese. At present in no acute distress. Selected Entries 09/01/19 09/01/19 11:14 15:06 Temperature 97.9 F Pulse Rate 71 Respiratory 20 Rate Blood Pressure 124/79 Blood Pressure 94 Mean BP Location Left Arm BP Position Supine O2 Sat by Pulse 83 L 94 Oximetry Oxygen Flow 1.00 Rate Oxygen Delivery Room Air Nasal Cannula Method HEAD: Is atraumatic normocephalic. EYES: Pupils are equal round regular reactive to light accommodation. Extraocular movements are normal. There is no conjunctival pallor. There is no scleral icterus. EARS: Tympanic membranes are intact. External auditory canals are clear. NOSE: There is no deviated nasal septum. There is no inflammation nasal mucous membrane. MOUTH: Mucous membranes of the mouth are moist. Tongue is moist. There is no ulcers. There is no bleeding from the gums. THROAT: There is no redness of the oropharynx. There is no exudates. SKIN: There is no skin rashes or skin lesions. There seems to be venous stasis dermatitis of the lower extremities. NECK: Supple. There seems to be mild JVD. Carotids are equal there is no bruit. There is no goiter. There is no lymphadenopathy. There is no accessory muscle respiration use. TRACHEA is central. LUNGS: There is a few bibasilar rales of CHF. There is no rhonchi wheezing. Heart: S1 is preserved. There is no S3 gallop there is no S4 gallop. Systolic murmur left sternal border and the apex there is no rub. ABDOMEN: Soft obese nontender there is hepatosplenomegaly bowel sounds are well heard. EXTREMITIES: Femorals are deep. Femorals are diminished there is no femoral bruits. Leg pulses are diminished. There is mild pedal edema bilaterally with venous stasis dermatitis. There is no cellulitis. There is no DVT. There is no cyanosis or clubbing. There is no calf tenderness. WIRE TWISTER: The patient is conscious awake alert oriented x3 with no focal deficit. PSYCHIATRIC: The patient judgment insight are intact her affect is normal. Labs- Entire Visit 08/31/19 08/31/19 08/31/19 02:05 02:05 02:05 WBC 7.1 RBC 4.24 Hgb 12.5 Hct 37.4 MCV 88 MCH 29.5 MCHC 33.5 RDW 15.7 H Plt Count 223 Lymph % (Auto) 52.0 H O'Brien % (Auto) 13.1 H Eos % (Auto) 3.2 Baso % (Auto) 0.8 Absolute Neuts (auto) 2.2 Absolute Lymphs (auto) 3.7 Absolute Monos (auto) 0.9 Absolute Eos (auto) 0.2 Absolute Basos (auto) 0.1 Seg Neutrophils % 30.9 L PT INR APTT D-Dimer Carbonic Acid HCO3/H2CO3 Ratio ABG pH ABG pCO2 ABG pO2 ABG HCO3 ABG Total CO2 ABG O2 Saturation ABG Base Excess VBG pH VBG pCO2 VBG HCO3 VBG Base Excess FiO2 Sodium 139.9 Potassium 3.8 Chloride 104 Carbon Dioxide 25 Anion Gap 11 BUN 30 H Creatinine 1.58 H Est GFR ( Amer) 39 L Est GFR (MDRD) Non-Af 32 L Glucose 174 H Hemoglobin A1c % Calcium 8.9 Phosphorus Magnesium Total Bilirubin 0.5 Direct Bilirubin 0.0 Neonat Total Bilirubin Not Reportable Neonat Direct Bilirubin Not Reportable Neonat Indirect Bili Not Reportable AST 72 H ALT 66 H Alkaline Phosphatase 133 H Ammonia Creatine Kinase CK-MB (CK-2) Troponin I 0.050 NT-Pro-B Natriuret Pep 3850 H Total Protein 7.6 Albumin 3.9 Triglycerides Cholesterol LDL Cholesterol Direct VLDL Cholesterol HDL Cholesterol Amylase TSH Free T4 Urine Color Urine Appearance Urine pH Ur Specific [place] Urine Protein Urine Glucose (UA) Urine Ketones Urine Blood Urine Nitrite Urine Bilirubin Urine Urobilinogen Ur Leukocyte Esterase Urine WBC (Auto) Urine RBC (Auto) U Hyaline Cast (Auto) Squamous Epi Cells Auto Urine Mucus (Auto) Urine Ascorbic Acid Urine Opiates Screen Urine Methadone Screen Ur Barbiturates Screen Ur Phencyclidine Scrn Ur Amphetamines Screen U Benzodiazepines Scrn Urine Cocaine Screen U Marijuana (THC) Screen SARS-CoV-2 (PCR) 08/31/19 08/31/19 08/31/19 02:05 02:05 02:05 WBC RBC Hgb Hct MCV MCH MCHC RDW Plt Count Lymph % (Auto) O'Brien % (Auto) Eos % (Auto) Baso % (Auto) Absolute Neuts (auto) Absolute Lymphs (auto) Absolute Monos (auto) Absolute Eos (auto) Absolute Basos (auto) Seg Neutrophils % PT 14.2 INR 1.10 APTT 25.2 D-Dimer 2.43 H Carbonic Acid HCO3/H2CO3 Ratio ABG pH ABG pCO2 ABG pO2 ABG HCO3 ABG Total CO2 ABG O2 Saturation ABG Base Excess VBG pH VBG pCO2 VBG HCO3 VBG Base Excess FiO2 Sodium Potassium Chloride Carbon Dioxide Anion Gap BUN Creatinine Est GFR ( Amer) Est GFR (MDRD) Non-Af Glucose Hemoglobin A1c % Calcium Phosphorus Magnesium Total Bilirubin Direct Bilirubin Neonat Total Bilirubin Neonat Direct Bilirubin Neonat Indirect Bili AST ALT Alkaline Phosphatase Ammonia Creatine Kinase CK-MB (CK-2) Troponin I NT-Pro-B Natriuret Pep Total Protein Albumin Triglycerides Cholesterol LDL Cholesterol Direct VLDL Cholesterol HDL Cholesterol Amylase TSH 6.20 H Free T4 1.39 Urine Color Urine Appearance Urine pH Ur Specific [place] Urine Protein Urine Glucose (UA) Urine Ketones Urine Blood Urine Nitrite Urine Bilirubin Urine Urobilinogen Ur Leukocyte Esterase Urine WBC (Auto) Urine RBC (Auto) U Hyaline Cast (Auto) Squamous Epi Cells Auto Urine Mucus (Auto) Urine Ascorbic Acid Urine Opiates Screen Urine Methadone Screen Ur Barbiturates Screen Ur Phencyclidine Scrn Ur Amphetamines Screen U Benzodiazepines Scrn Urine Cocaine Screen U Marijuana (THC) Screen SARS-CoV-2 (PCR) 08/31/19 08/31/19 08/31/19 02:05 03:15 05:35 WBC RBC Hgb Hct MCV MCH MCHC RDW Plt Count Lymph % (Auto) O'Brien % (Auto) Eos % (Auto) Baso % (Auto) Absolute Neuts (auto) Absolute Lymphs (auto) Absolute Monos (auto) Absolute Eos (auto) Absolute Basos (auto) Seg Neutrophils % PT INR APTT D-Dimer Carbonic Acid HCO3/H2CO3 Ratio ABG pH ABG pCO2 ABG pO2 ABG HCO3 ABG Total CO2 ABG O2 Saturation ABG Base Excess VBG pH 7.35 VBG pCO2 44.8 VBG HCO3 23.9 VBG Base Excess -1.9 FiO2 Sodium Potassium Chloride Carbon Dioxide Anion Gap BUN Creatinine Est GFR ( Amer) Est GFR (MDRD) Non-Af Glucose Hemoglobin A1c % Calcium Phosphorus 5.1 H Magnesium 2.2 Total Bilirubin Direct Bilirubin Neonat Total Bilirubin Neonat Direct Bilirubin Neonat Indirect Bili AST ALT Alkaline Phosphatase Ammonia Creatine Kinase CK-MB (CK-2) Troponin I NT-Pro-B Natriuret Pep Total Protein Albumin Triglycerides Cholesterol LDL Cholesterol Direct VLDL Cholesterol HDL Cholesterol Amylase 74 TSH Free T4 Urine Color Urine Appearance Urine pH Ur Specific [place] Urine Protein Urine Glucose (UA) Urine Ketones Urine Blood Urine Nitrite Urine Bilirubin Urine Urobilinogen Ur Leukocyte Esterase Urine WBC (Auto) Urine RBC (Auto) U Hyaline Cast (Auto) Squamous Epi Cells Auto Urine Mucus (Auto) Urine Ascorbic Acid Urine Opiates Screen Urine Methadone Screen Ur Barbiturates Screen Ur Phencyclidine Scrn Ur Amphetamines Screen U Benzodiazepines Scrn Urine Cocaine Screen U Marijuana (THC) Screen SARS-CoV-2 (PCR) NEGATIVE 08/31/19 08/31/19 08/31/19 06:45 06:45 06:45 WBC RBC Hgb Hct MCV MCH MCHC RDW Plt Count Lymph % (Auto) O'Brien % (Auto) Eos % (Auto) Baso % (Auto) Absolute Neuts (auto) Absolute Lymphs (auto) Absolute Monos (auto) Absolute Eos (auto) Absolute Basos (auto) Seg Neutrophils % PT INR APTT D-Dimer Carbonic Acid HCO3/H2CO3 Ratio ABG pH ABG pCO2 ABG pO2 ABG HCO3 ABG Total CO2 ABG O2 Saturation ABG Base Excess VBG pH VBG pCO2 VBG HCO3 VBG Base Excess FiO2 Sodium Potassium Chloride Carbon Dioxide Anion Gap BUN Creatinine Est GFR ( Amer) Est GFR (MDRD) Non-Af Glucose Hemoglobin A1c % Calcium Phosphorus Magnesium Total Bilirubin Direct Bilirubin Neonat Total Bilirubin Neonat Direct Bilirubin Neonat Indirect Bili AST ALT Alkaline Phosphatase Ammonia < 8.7 L Creatine Kinase 182 H CK-MB (CK-2) 2.53 Troponin I 0.074 NT-Pro-B Natriuret Pep Total Protein Albumin Triglycerides Cholesterol LDL Cholesterol Direct VLDL Cholesterol HDL Cholesterol Amylase TSH Free T4 Urine Color Urine Appearance Urine pH Ur Specific [place] Urine Protein Urine Glucose (UA) Urine Ketones Urine Blood Urine Nitrite Urine Bilirubin Urine Urobilinogen Ur Leukocyte Esterase Urine WBC (Auto) Urine RBC (Auto) U Hyaline Cast (Auto) Squamous Epi Cells Auto Urine Mucus (Auto) Urine Ascorbic Acid Urine Opiates Screen Urine Methadone Screen Ur Barbiturates Screen Ur Phencyclidine Scrn Ur Amphetamines Screen U Benzodiazepines Scrn Urine Cocaine Screen U Marijuana (THC) Screen SARS-CoV-2 (PCR) 08/31/19 08/31/19 08/31/19 06:45 06:45 06:45 WBC RBC Hgb Hct MCV MCH MCHC RDW Plt Count Lymph % (Auto) O'Brien % (Auto) Eos % (Auto) Baso % (Auto) Absolute Neuts (auto) Absolute Lymphs (auto) Absolute Monos (auto) Absolute Eos (auto) Absolute Basos (auto) Seg Neutrophils % PT INR APTT D-Dimer Carbonic Acid 1.08 HCO3/H2CO3 Ratio 19:1 ABG pH 7.39 ABG pCO2 36.0 ABG pO2 106.4 H ABG HCO3 21.2 ABG Total CO2 22.3 ABG O2 Saturation 97.9 ABG Base Excess -3.2 VBG pH VBG pCO2 VBG HCO3 VBG Base Excess FiO2 30% Sodium Potassium Chloride Carbon Dioxide Anion Gap BUN Creatinine Est GFR ( Amer) Est GFR (MDRD) Non-Af Glucose Hemoglobin A1c % Calcium Phosphorus Magnesium Total Bilirubin Direct Bilirubin Neonat Total Bilirubin Neonat Direct Bilirubin Neonat Indirect Bili AST ALT Alkaline Phosphatase Ammonia Creatine Kinase CK-MB (CK-2) Troponin I NT-Pro-B Natriuret Pep Total Protein Albumin Triglycerides Cholesterol LDL Cholesterol Direct VLDL Cholesterol HDL Cholesterol Amylase TSH Free T4 Urine Color COLORLESS Urine Appearance CLEAR Urine pH 5.0 Ur Specific [place] 1.005 Urine Protein NEGATIVE Urine Glucose (UA) NEGATIVE Urine Ketones NEGATIVE Urine Blood NEGATIVE Urine Nitrite NEGATIVE Urine Bilirubin NEGATIVE Urine Urobilinogen NEGATIVE Ur Leukocyte Esterase NEGATIVE Urine WBC (Auto) 0 Urine RBC (Auto) U Hyaline Cast (Auto) 1 Squamous Epi Cells Auto <1 Urine Mucus (Auto) RARE Urine Ascorbic Acid NEGATIVE Urine Opiates Screen NEGATIVE Urine Methadone Screen NEGATIVE Ur Barbiturates Screen NEGATIVE Ur Phencyclidine Scrn NEGATIVE Ur Amphetamines Screen NEGATIVE U Benzodiazepines Scrn NEGATIVE Urine Cocaine Screen NEGATIVE U Marijuana (THC) Screen NEGATIVE SARS-CoV-2 (PCR) 08/31/19 08/31/19 08/31/19 10:45 10:45 10:45 WBC RBC Hgb Hct MCV MCH MCHC RDW Plt Count Lymph % (Auto) O'Brien % (Auto) Eos % (Auto) Baso % (Auto) Absolute Neuts (auto) Absolute Lymphs (auto) Absolute Monos (auto) Absolute Eos (auto) Absolute Basos (auto) Seg Neutrophils % PT 14.4 INR 1.12 APTT 31.9 D-Dimer Carbonic Acid HCO3/H2CO3 Ratio ABG pH ABG pCO2 ABG pO2 ABG HCO3 ABG Total CO2 ABG O2 Saturation ABG Base Excess VBG pH VBG pCO2 VBG HCO3 VBG Base Excess FiO2 Sodium Potassium Chloride Carbon Dioxide Anion Gap BUN Creatinine Est GFR ( Amer) Est GFR (MDRD) Non-Af Glucose Hemoglobin A1c % Calcium Phosphorus Magnesium Total Bilirubin Direct Bilirubin Neonat Total Bilirubin Neonat Direct Bilirubin Neonat Indirect Bili AST ALT Alkaline Phosphatase Ammonia Creatine Kinase 168 H CK-MB (CK-2) 2.88 Troponin I 0.059 NT-Pro-B Natriuret Pep Total Protein Albumin Triglycerides Cholesterol LDL Cholesterol Direct VLDL Cholesterol HDL Cholesterol Amylase TSH Free T4 Urine Color Urine Appearance Urine pH Ur Specific [place] Urine Protein Urine Glucose (UA) Urine Ketones Urine Blood Urine Nitrite Urine Bilirubin Urine Urobilinogen Ur Leukocyte Esterase Urine WBC (Auto) Urine RBC (Auto) U Hyaline Cast (Auto) Squamous Epi Cells Auto Urine Mucus (Auto) Urine Ascorbic Acid Urine Opiates Screen Urine Methadone Screen Ur Barbiturates Screen Ur Phencyclidine Scrn Ur Amphetamines Screen U Benzodiazepines Scrn Urine Cocaine Screen U Marijuana (THC) Screen SARS-CoV-2 (PCR) 08/31/19 08/31/19 08/31/19 10:45 18:35 18:35 WBC RBC Hgb Hct MCV MCH MCHC RDW Plt Count Lymph % (Auto) O'Brien % (Auto) Eos % (Auto) Baso % (Auto) Absolute Neuts (auto) Absolute Lymphs (auto) Absolute Monos (auto) Absolute Eos (auto) Absolute Basos (auto) Seg Neutrophils % PT INR APTT D-Dimer Carbonic Acid HCO3/H2CO3 Ratio ABG pH ABG pCO2 ABG pO2 ABG HCO3 ABG Total CO2 ABG O2 Saturation ABG Base Excess VBG pH VBG pCO2 VBG HCO3 VBG Base Excess FiO2 Sodium 138.8 Potassium 3.7 Chloride 104 Carbon Dioxide 22 Anion Gap 13 BUN 30 H Creatinine 1.48 H Est GFR ( Amer) 42 L Est GFR (MDRD) Non-Af 35 L Glucose 195 H Hemoglobin A1c % Calcium 9.5 Phosphorus Magnesium Total Bilirubin Direct Bilirubin Neonat Total Bilirubin Neonat Direct Bilirubin Neonat Indirect Bili AST ALT Alkaline Phosphatase Ammonia Creatine Kinase 173 H CK-MB (CK-2) 3.37 Troponin I 0.047 NT-Pro-B Natriuret Pep Total Protein Albumin Triglycerides Cholesterol LDL Cholesterol Direct VLDL Cholesterol HDL Cholesterol Amylase TSH Free T4 Urine Color Urine Appearance Urine pH Ur Specific [place] Urine Protein Urine Glucose (UA) Urine Ketones Urine Blood Urine Nitrite Urine Bilirubin Urine Urobilinogen Ur Leukocyte Esterase Urine WBC (Auto) Urine RBC (Auto) U Hyaline Cast (Auto) Squamous Epi Cells Auto Urine Mucus (Auto) Urine Ascorbic Acid Urine Opiates Screen Urine Methadone Screen Ur Barbiturates Screen Ur Phencyclidine Scrn Ur Amphetamines Screen U Benzodiazepines Scrn Urine Cocaine Screen U Marijuana (THC) Screen SARS-CoV-2 (PCR) 09/01/19 09/01/19 09/01/19 04:49 04:49 04:49 WBC 9.8 RBC 4.18 Hgb 12.4 Hct 36.2 MCV 87 MCH 29.7 MCHC 34.3 RDW 15.4 H Plt Count 206 Lymph % (Auto) O'Brien % (Auto) Eos % (Auto) Baso % (Auto) Absolute Neuts (auto) Absolute Lymphs (auto) Absolute Monos (auto) Absolute Eos (auto) Absolute Basos (auto) Seg Neutrophils % PT INR APTT D-Dimer Carbonic Acid HCO3/H2CO3 Ratio ABG pH ABG pCO2 ABG pO2 ABG HCO3 ABG Total CO2 ABG O2 Saturation ABG Base Excess VBG pH VBG pCO2 VBG HCO3 VBG Base Excess FiO2 Sodium Potassium Chloride Carbon Dioxide Anion Gap BUN Creatinine Est GFR ( Amer) Est GFR (MDRD) Non-Af Glucose Hemoglobin A1c % 6.1 H Calcium Phosphorus Magnesium Total Bilirubin 0.6 Direct Bilirubin 0.0 Neonat Total Bilirubin Not Reportable Neonat Direct Bilirubin Not Reportable Neonat Indirect Bili Not Reportable AST 38 H ALT 55 H Alkaline Phosphatase 110 Ammonia Creatine Kinase CK-MB (CK-2) Troponin I NT-Pro-B Natriuret Pep Total Protein 7.6 Albumin 3.9 Triglycerides 113 Cholesterol 159.77 LDL Cholesterol Direct 94 VLDL Cholesterol 22.0 HDL Cholesterol 63 Amylase TSH Free T4 Urine Color Urine Appearance Urine pH Ur Specific [place] Urine Protein Urine Glucose (UA) Urine Ketones Urine Blood Urine Nitrite Urine Bilirubin Urine Urobilinogen Ur Leukocyte Esterase Urine WBC (Auto) Urine RBC (Auto) U Hyaline Cast (Auto) Squamous Epi Cells Auto Urine Mucus (Auto) Urine Ascorbic Acid Urine Opiates Screen Urine Methadone Screen Ur Barbiturates Screen Ur Phencyclidine Scrn Ur Amphetamines Screen U Benzodiazepines Scrn Urine Cocaine Screen U Marijuana (THC) Screen SARS-CoV-2 (PCR) 09/01/19 11:42 WBC RBC Hgb Hct MCV MCH MCHC RDW Plt Count Lymph % (Auto) O'Brien % (Auto) Eos % (Auto) Baso % (Auto) Absolute Neuts (auto) Absolute Lymphs (auto) Absolute Monos (auto) Absolute Eos (auto) Absolute Basos (auto) Seg Neutrophils % PT INR APTT D-Dimer Carbonic Acid HCO3/H2CO3 Ratio ABG pH ABG pCO2 ABG pO2 ABG HCO3 ABG Total CO2 ABG O2 Saturation ABG Base Excess VBG pH VBG pCO2 VBG HCO3 VBG Base Excess FiO2 Sodium Potassium Chloride Carbon Dioxide Anion Gap BUN Creatinine Est GFR ( Amer) Est GFR (MDRD) Non-Af Glucose Hemoglobin A1c % Calcium Phosphorus Magnesium Total Bilirubin Direct Bilirubin Neonat Total Bilirubin Neonat Direct Bilirubin Neonat Indirect Bili AST ALT Alkaline Phosphatase Ammonia Creatine Kinase CK-MB (CK-2) Troponin I NT-Pro-B Natriuret Pep Total Protein Albumin Triglycerides Cholesterol LDL Cholesterol Direct VLDL Cholesterol HDL Cholesterol Amylase TSH Free T4 Urine Color STRAW Urine Appearance CLEAR Urine pH 7.0 Ur Specific [place] 1.008 Urine Protein NEGATIVE Urine Glucose (UA) NEGATIVE Urine Ketones NEGATIVE Urine Blood NEGATIVE Urine Nitrite NEGATIVE Urine Bilirubin NEGATIVE Urine Urobilinogen NEGATIVE Ur Leukocyte Esterase NEGATIVE Urine WBC (Auto) Urine RBC (Auto) 0 U Hyaline Cast (Auto) Squamous Epi Cells Auto <1 Urine Mucus (Auto) RARE Urine Ascorbic Acid NEGATIVE Urine Opiates Screen Urine Methadone Screen Ur Barbiturates Screen Ur Phencyclidine Scrn Ur Amphetamines Screen U Benzodiazepines Scrn Urine Cocaine Screen U Marijuana (THC) Screen SARS-CoV-2 (PCR) Lung Scan-VQ NM 08/31/19 00:00 IMPRESSION: NORMAL PERFUSION LUNG SCAN. Renal Ultrasound 08/31/19 00:00 IMPRESSION: 1. Bilateral kidneys are increased in echogenicity, suggesting chronic medical renal disease. 2. Echogenic foci in the kidneys may represent intrarenal stones. There is no hydronephrosis. 3. Bilateral simple renal cysts. 4. Area of shadowing in the region of the gallbladder fossa. The appearance suggests a gallbladder filled with stones. There is also suggestion of gallbladder wall thickening. No EKG available. Will order one for the morning. Chest X-Ray 08/31/19 02:03 IMPRESSION: Chronic changes. Mild crowding at the bases. IMPRESSION/RECOMMENDATION: 1. Acute systolic left ventricular and right ventricular heart failure. [Suspect this is acute on chronic biventricular systolic heart failure. Continue diuretics and his Entresto. Would increase the patient's Coreg to 6.25 mg p.o. every 12 hours and increase further as tolerated to a maximum of 25 mg p.o. every 12 hours. 2. Cardiomyopathy with moderately reduced LV ejection fraction 40%. Would recommend later once his CHF is treated and patient's compensated from a CHF will get a IV Lexiscan Cardiolite stress test to make sure patient does not have underlying coronary artery disease. 3. Severe pulmonary hypertension.: Suspect the patient has underlying his sleep apnea. Part of the pulmonary hypertension secondary to left heart failure. Would recommend adding a calcium channel benoit 4. Hypertension: Blood pressure well controlled there is still room for increase in the patient's treatment. 5. Moderate to severe mitral regurgitation: Continue current treatment treatment of the heart failure will definitely improve the patient's mitral regurg. If this persists then the patient may need a BETY to see if she has some deformity of the mitral leaflet that can be corrected. 6. Moderate tricuspid regurgitation with moderate pulmonary hypertension. 7. Acute renal insufficiency. Avoid nephrotoxic drugs. Suspect that renal function will improve with improvement of the patient's left heart failure and right heart failure. 8. Most likely the patient has sleep apnea: Would recommend the patient have a sleep study done as an outpatient. Medications reviewed. Medications adjusted and added. Medical regimen and management plan discussed with attending provider. Medical decision making is of high complexity. 60 minutes spent with patient more than 50% time spent in direct patient care. Will follow. Discussed the case with Dr. Rai.
--- NOTE | 2019-09-01 21:01 | PDOC PROGRESS REPORT ---
Subjective Progress Note for:: 09/01/19 Subjective:: Patient seen by the bedside, she has less shortness of breath, admitted with new onset CHF. She is on anti-CHF regimen Reason For Visit: ACUTE RESPIRATORY DISTRESS, CAUSE, PE, HFPEF, Physical Exam Vital Signs: Temp Pulse Resp BP Pulse Ox 97.0 F 78 15 110/63 96 09/01/19 15:06 09/01/19 16:52 09/01/19 16:52 09/01/19 15:06 09/01/19 16:52 Intake & Output 08/31/19 09/01/19 09/02/19 06:59 06:59 06:59 Intake Total 1249 930 Output Total 1000 700 450 Balance -1000 549 480 Weight 111.13 kg 106 kg General appearance: PRESENT: no acute distress Eye exam: PRESENT: PERRLA Respiratory exam: PRESENT: clear to auscultation césar Cardiovascular exam: PRESENT: +S1, +S2 GI/Abdominal exam: PRESENT: soft Extremities exam: PRESENT: pedal edema, other - Lymphedema of both legs Neurological exam: PRESENT: alert Results Laboratory Results: 09/01/19 04:49 08/31/19 10:45 09/01/19 09/01/19 09/01/19 04:49 04:49 11:42 WBC 9.8 RBC 4.18 Hgb 12.4 Hct 36.2 MCV 87 MCH 29.7 MCHC 34.3 RDW 15.4 H Plt Count 206 Total Bilirubin 0.6 AST 38 H Alkaline Phosphatase 110 Total Protein 7.6 Albumin 3.9 Triglycerides 113 Cholesterol 159.77 LDL Cholesterol Direct 94 VLDL Cholesterol 22.0 HDL Cholesterol 63 Urine Color STRAW Urine Appearance CLEAR Urine pH 7.0 Ur Specific [place] 1.008 Urine Protein NEGATIVE Urine Glucose (UA) NEGATIVE Urine Ketones NEGATIVE Urine Blood NEGATIVE Urine Nitrite NEGATIVE Ur Leukocyte Esterase NEGATIVE Urine RBC (Auto) 0 08/31/19 08/31/19 08/31/19 02:05 06:45 06:45 Creatine Kinase 182 H CK-MB (CK-2) 2.53 Troponin I 0.050 0.074 NT-Pro-B Natriuret Pep 3850 H 08/31/19 08/31/19 08/31/19 10:45 10:45 18:35 Creatine Kinase 168 H 173 H CK-MB (CK-2) 2.88 Troponin I 0.059 NT-Pro-B Natriuret Pep 08/31/19 18:35 Creatine Kinase CK-MB (CK-2) 3.37 Troponin I 0.047 NT-Pro-B Natriuret Pep Impressions: Lung Scan-VQ NM 08/31/19 00:00 IMPRESSION: NORMAL PERFUSION LUNG SCAN. Renal Ultrasound 08/31/19 00:00 IMPRESSION: 1. Bilateral kidneys are increased in echogenicity, suggesting chronic medical renal disease. 2. Echogenic foci in the kidneys may represent intrarenal stones. There is no hydronephrosis. 3. Bilateral simple renal cysts. 4. Area of shadowing in the region of the gallbladder fossa. The appearance suggests a gallbladder filled with stones. There is also suggestion of gallbladder wall thickening. Chest X-Ray 08/31/19 02:03 IMPRESSION: Chronic changes. Mild crowding at the bases.. Assessment & Plan - Diagnosis (1) Acute systolic heart failure Is this a current diagnosis for this admission?: Yes Plan: Transthoracic echocardiogram report review, continue anti-CHF regimen, consultation requested from cardiology Dr. Issa (2) CKD (chronic kidney disease) Qualifiers: Chronic kidney disease stage: unspecified stage Qualified Code(s): N18.9 - Chronic kidney disease, unspecified Is this a current diagnosis for this admission?: Yes Plan: Check for serum paraproteinemia (3) Acute hypoxemic respiratory failure Is this a current diagnosis for this admission?: Yes - Time Time Spent with patient: 25-34 minutes Level of Care: IMCU Medications reviewed and adjusted accordingly: Yes
[2019-09-02] MEDS: CARVEDILOL 3.125 MG TABLET PO SCH ×2 (05:34→17:22)
[2019-09-02 06:18] LABS: ABSOLUTE BASOPHILS # (AUTO) 0.1 10^3/uL (0.0-0.2); ABSOLUTE EOSINOPHILS # (AUTO) 0.1 10^3/uL (0.0-0.6); ABSOLUTE MONOCYTES (AUTO) 0.7 10^3/uL (0.1-1.4); ABSOLUTE NEUT (AUTO) 3.1 10^3/uL (1.7-8.2); BASOPHILS % (AUTO) 1.2 % (0-2); EOSINOPHILS % (AUTO) 1.9 % (0-6); HEMATOCRIT 39.9 % (36.0-47.0); HEMOGLOBIN 13.5 g/dL (12.0-15.5); LYMPHOCYTES % (AUTO) 34.1 % (13-45); MEAN CORPUSCULAR HEMOGLOBIN 29.2 pg (27.0-33.4); MEAN CORPUSCULAR HGB CONC 33.8 g/dL (32.0-36.0); MEAN CORPUSCULAR VOLUME 86 fl (80-97); MONOCYTES % (AUTO) 11.3 % (3-13); PLATELET COUNT 218 10^3/uL (150-450); RED BLOOD COUNT 4.63 10^6/uL (3.72-5.28); RED CELL DISTRIBUTION WIDTH 15.6 % (11.5-14.0); SEGMENTED NEUTROPHILS % (AUTO) 51.5 % (42-78); TOTAL CELLS COUNTED % (AUTO) 100 %; WHITE BLOOD COUNT 5.9 10^3/uL (4.0-10.5)
[2019-09-02 06:55] LABS: ALBUMIN 3.5 g/dL (3.5-5.0); ALKALINE PHOSPHATASE 98 U/L (38-126); ASPARTATE AMINO TRANSFERASE 26 U/L (14-36); BILIRUBIN,TOTAL 0.4 mg/dL (0.2-1.3); TOTAL PROTEIN 7.1 g/dL (6.3-8.2)
[2019-09-02] MEDS: FUROSEMIDE INJ/PF 40 MG/4 ML SDV IV SCH (09:56)
[2019-09-02] MEDS: AMLODIPINE BESYLATE 2.5 MG TABLET PO SCH ×2 (09:56→22:05)
[2019-09-02] MEDS: SACUBITRIL/VALSARTAN 49 MG/51 MG TABLET PO SCH ×2 (09:57→17:22)
[2019-09-02] MEDS: ENOXAPARIN SODIUM INJ 40 MG/0.4 ML DISP.SYRIN SUBCUT SCH (09:57)
[2019-09-02] MEDS: CIPROFLOXACIN 400 MG/D5W RTU 400 MG/200 ML RTUPB IV SCH ×2 (09:57→22:05)
--- NOTE | 2019-09-02 20:03 | Progress Note ---
Provider Note Provider Note: CARDIOLOGY PROGRESS NOTE by Dr. Gwen Russell on 09/02/2019. SUBJECTIVE: The patient states she feels better. She has no shortness of breath. There is no chest pain. There is no PND orthopnea. Her leg edema is much improved and there is only trace leg edema. There is no arrhythmias seen on the monitor. There are no labs from today with regards to her renal function. We will get that tomorrow. PHYSICAL EXAMINATION: The patient moderately obese. In no acute distress. Selected Entries 09/02/19 15:50 Temperature 98.4 F Temperature Oral Source Pulse Rate 78 Respiratory 18 Rate Blood Pressure 118/66 Blood Pressure 83 Mean BP Location Left Arm BP Position Sitting O2 Sat by Pulse 100 Oximetry Oxygen Delivery Room Air Method HEAD: Is atraumatic normocephalic. EYES: Pupils are equal round regular reactive to light accommodation. Extraocular movements are normal. There is no conjunctival pallor. There is no scleral icterus. EARS: Tympanic membranes are intact. External auditory canals are clear. NOSE: There is no deviated nasal septum. There is no inflammation nasal mucous membrane. MOUTH: Mucous membranes of the mouth are moist. Tongue is moist. There is no ulcers. There is no bleeding from the gums. THROAT: There is no redness of the oropharynx. There is no exudates. SKIN: There is no skin rashes or skin lesions. There seems to be venous stasis dermatitis of the lower extremities. NECK: Supple. There seems to be mild JVD. Carotids are equal there is no bruit. There is no goiter. There is no lymphadenopathy. There is no accessory muscle respiration use. TRACHEA is central. LUNGS: There is a few bibasilar rales of CHF. There is no rhonchi wheezing. Heart: S1 is preserved. There is no S3 gallop there is no S4 gallop. Systolic murmur left sternal border and the apex there is no rub. ABDOMEN: Soft obese nontender there is hepatosplenomegaly bowel sounds are well heard. EXTREMITIES: Femorals are deep. Femorals are diminished there is no femoral bruits. Leg pulses are diminished. There is trace pedal edema bilaterally with early/mild venous stasis dermatitis. There is no cellulitis. There is no DVT. There is no cyanosis or clubbing. There is no calf tenderness. EARRING MAKER: The patient is conscious awake alert oriented x3 with no focal deficit. PSYCHIATRIC: The patient judgment insight are intact her affect is normal, Labs- All tests 24 hr 09/02/19 09/02/19 05:26 05:26 WBC 5.9 RBC 4.63 Hgb 13.5 Hct 39.9 MCV 86 MCH 29.2 MCHC 33.8 RDW 15.6 H Plt Count 218 Lymph % (Auto) 34.1 [place] % (Auto) 11.3 Eos % (Auto) 1.9 Baso % (Auto) 1.2 Absolute Neuts (auto) 3.1 Absolute Lymphs (auto) 2.0 Absolute Monos (auto) 0.7 Absolute Eos (auto) 0.1 Absolute Basos (auto) 0.1 Seg Neutrophils % 51.5 Total Bilirubin 0.4 Direct Bilirubin 0.0 Neonat Total Bilirubin Not Reportable Neonat Direct Bilirubin Not Reportable Neonat Indirect Bili Not Reportable AST 26 ALT 40 H Alkaline Phosphatase 98 Total Protein 7.1 Albumin 3.5 Lung Scan-VQ NM 08/31/19 00:00 IMPRESSION: NORMAL PERFUSION LUNG SCAN. Renal Ultrasound 08/31/19 00:00 IMPRESSION: 1. Bilateral kidneys are increased in echogenicity, suggesting chronic medical renal disease. 2. Echogenic foci in the kidneys may represent intrarenal stones. There is no hydronephrosis. 3. Bilateral simple renal cysts. 4. Area of shadowing in the region of the gallbladder fossa. The appearance suggests a gallbladder filled with stones. There is also suggestion of gallbladder wall thickening. Chest X-Ray 08/31/19 02:03 IMPRESSION: Chronic changes. Mild crowding at the bases.. IMPRESSION/RECOMMENDATION: 1. Acute systolic left ventricular and right ventricular heart failure. [Suspect this is acute on chronic biventricular systolic heart failure. Continue diuretics and his Entresto. Would increase the patient's Coreg to 12 .5 mg p.o. every 12 hours and increase further as tolerated to a maximum of 25 mg p.o. every 12 hours. 2. Cardiomyopathy with moderately reduced LV ejection fraction 40%. Would recommend later once his CHF is treated and patient's compensated from a CHF will get a IV Lexiscan Cardiolite stress test to make sure patient does not have underlying coronary artery disease. 3. Severe pulmonary hypertension.: Suspect the patient has underlying his sleep apnea. Part of the pulmonary hypertension secondary to left heart failure. Would recommend adding a calcium channel benoit 4. Hypertension: Blood pressure well controlled, but there is still room for increase in the patient's treatment. 5. Moderate to severe mitral regurgitation: Continue current treatment treatment of the heart failure will definitely improve the patient's mitral regurg. If this persists then the patient may need a BETY to see if she has some deformity of the mitral leaflet that can be corrected. 6. Moderate tricuspid regurgitation with moderate pulmonary hypertension. 7. Acute renal insufficiency. Avoid nephrotoxic drugs. Suspect that renal function will improve with improvement of the patient's left heart failure and right heart failure. 8. Most likely the patient has sleep apnea: Would recommend the patient have a sleep study done as an outpatient. Medications reviewed. Medical regimen management plan discussed with attending provider covering Dr. Rai. Medical decision making is of high complexity in usual need to increase the patient's medication dosages. 40 minutes spent on the patient more than 50% time spent direct patient care. Will follow.
--- NOTE | 2019-09-02 20:14 | PDOC PROGRESS REPORT ---
Subjective Progress Note for:: 09/02/19 Subjective:: Patient denied any chest pain or difficulty with breathing. No fever or chills. No nausea, vomiting, or abdominal pain. Remain on IV Ciprofloxacin., Urine culture grew Proteus Mirabilis. Reason For Visit: ACUTE RESPIRATORY DISTRESS, CAUSE, PE, HFPEF, Physical Exam Vital Signs: Temp Pulse Resp BP Pulse Ox 98.4 F 73 18 118/66 100 09/02/19 19:22 09/02/19 19:22 09/02/19 19:22 09/02/19 19:22 09/02/19 19:22 Intake & Output 09/01/19 09/02/19 09/03/19 06:59 06:59 06:59 Intake Total 1249 1620 200 Output Total 700 450 Balance 549 1170 200 Weight 106 kg 104.8 kg General appearance: PRESENT: no acute distress, obese Head exam: PRESENT: atraumatic, normocephalic Eye exam: PRESENT: conjunctiva pink. ABSENT: scleral icterus Mouth exam: PRESENT: moist Respiratory exam: PRESENT: clear to auscultation césar Cardiovascular exam: PRESENT: RRR, +S1, +S2. ABSENT: diastolic murmur, rubs, systolic murmur Vascular exam: ABSENT: pallor GI/Abdominal exam: PRESENT: normal bowel sounds, soft. ABSENT: distended, guarding, mass, organolmegaly, rebound, tenderness Extremities exam: ABSENT: pedal edema Neurological exam: PRESENT: alert, awake, oriented to person, oriented to place, oriented to time, oriented to situation, CN II-XII grossly intact. ABSENT: motor sensory deficit Psychiatric exam: PRESENT: appropriate affect, normal mood. ABSENT: homicidal ideation, suicidal ideation Skin exam: PRESENT: dry, warm Results Laboratory Results: 09/02/19 05:26 08/31/19 10:45 09/02/19 09/02/19 05:26 05:26 WBC 5.9 RBC 4.63 Hgb 13.5 Hct 39.9 MCV 86 MCH 29.2 MCHC 33.8 RDW 15.6 H Plt Count 218 Seg Neutrophils % 51.5 Total Bilirubin 0.4 AST 26 Alkaline Phosphatase 98 Total Protein 7.1 Albumin 3.5 08/31/19 08/31/19 08/31/19 02:05 06:45 06:45 Creatine Kinase 182 H CK-MB (CK-2) 2.53 Troponin I 0.050 0.074 NT-Pro-B Natriuret Pep 3850 H 08/31/19 08/31/19 08/31/19 10:45 10:45 18:35 Creatine Kinase 168 H 173 H CK-MB (CK-2) 2.88 Troponin I 0.059 NT-Pro-B Natriuret Pep 08/31/19 18:35 Creatine Kinase CK-MB (CK-2) 3.37 Troponin I 0.047 NT-Pro-B Natriuret Pep Impressions: Lung Scan-VQ NM 08/31/19 00:00 IMPRESSION: NORMAL PERFUSION LUNG SCAN. Renal Ultrasound 08/31/19 00:00 IMPRESSION: 1. Bilateral kidneys are increased in echogenicity, suggesting chronic medical renal disease. 2. Echogenic foci in the kidneys may represent intrarenal stones. There is no hydronephrosis. 3. Bilateral simple renal cysts. 4. Area of shadowing in the region of the gallbladder fossa. The appearance suggests a gallbladder filled with stones. There is also suggestion of gallbladder wall thickening. Chest X-Ray 08/31/19 02:03 IMPRESSION: Chronic changes. Mild crowding at the bases.. Assessment & Plan - Diagnosis (1) Acute hypoxemic respiratory failure Is this a current diagnosis for this admission?: Yes Plan: Resolved with improvement in her breathing status. (2) Acute systolic heart failure Is this a current diagnosis for this admission?: Yes Plan: Her echocardiogram suggested decreased LV systolic function. Maintain on current GDMT dietary restriction and fluid management. (3) Urinary tract infection, bacterial Is this a current diagnosis for this admission?: Yes Plan: Continue on IV Ciprofloxacin therapy. (4) Proteus mirabilis infection Is this a current diagnosis for this admission?: Yes Plan: Continue on IV Ciprofloxacin therapy. - Time Time Spent with patient: 25-34 minutes Level of Care: IMCU Medications reviewed and adjusted accordingly: Yes Anticipated discharge: Home with Homehealth Within: Other - Inpatient Certification Based on my medical assessment, after consideration of the patient's comorbidities, presenting symptoms, or acuity I expect that the services needed warrant INPATIENT care.: Yes I certify that my determination is in accordance with my understanding of Medicare's requirements for reasonable and necessary INPATIENT services [42 CFR 412.3e].: Yes Medical Necessity: Significant Comorbidiites Make Outpatient Treatment Too Risky, Need Close Monitoring Due to Risk of Patient Decompensation, Need For Continuous Telemetry Monitoring, Need for IV Antibiotics, Risk of Complication if Not Cared For in Hospital, Risk of Diagnosis Which Will Require Inpatient E elizabeth/Care/Monitoring Post Hospital Care: D/C Suspender Maker Documentation - Plan Summary Plan Summary: Continue current medication management. Obtain CBC with Diff and BMP in am.
--- NOTE | 2019-09-02 20:53 | EKG REPORT ---
SEVERITY:- ABNORMAL ECG - SINUS RHYTHM LEFT VENTRICULAR HYPERTROPHY ANTERIOR Q WAVES, POSSIBLY DUE TO LVH PROLONGED QT INTERVAL : Confirmed by: Kayla Hernandez 02-Sep-2019 20:53:32
[2019-09-02] MEDS ORDERED: CARVEDILOL 3.125 MG TABLET PO ONE (21:00)
[2019-09-02] MEDS ORDERED: CARVEDILOL 12.5 MG TABLET PO ONE (22:00)
[2019-09-03] MEDS: CARVEDILOL 12.5 MG TABLET PO SCH ×2 (05:25→17:33)
[2019-09-03 06:06] LABS: ABSOLUTE BASOPHILS # (AUTO) 0.1 10^3/uL (0.0-0.2); ABSOLUTE EOSINOPHILS # (AUTO) 0.2 10^3/uL (0.0-0.6); ABSOLUTE LYMPHOCYTES (AUTO) 1.6 10^3/uL (0.5-4.7); ABSOLUTE MONOCYTES (AUTO) 0.7 10^3/uL (0.1-1.4); ABSOLUTE NEUT (AUTO) 1.9 10^3/uL (1.7-8.2); BASOPHILS % (AUTO) 1.2 % (0-2); EOSINOPHILS % (AUTO) 3.6 % (0-6); HEMATOCRIT 41.1 % (36.0-47.0); HEMOGLOBIN 13.9 g/dL (12.0-15.5); LYMPHOCYTES % (AUTO) 36.6 % (13-45); MEAN CORPUSCULAR HEMOGLOBIN 29.1 pg (27.0-33.4); MEAN CORPUSCULAR HGB CONC 33.8 g/dL (32.0-36.0); MEAN CORPUSCULAR VOLUME 86 fl (80-97); MONOCYTES % (AUTO) 16.1 % (3-13); PLATELET COUNT 221 10^3/uL (150-450); RED BLOOD COUNT 4.77 10^6/uL (3.72-5.28); RED CELL DISTRIBUTION WIDTH 15.3 % (11.5-14.0); SEGMENTED NEUTROPHILS % (AUTO) 42.5 % (42-78); TOTAL CELLS COUNTED % (AUTO) 100 %; WHITE BLOOD COUNT 4.5 10^3/uL (4.0-10.5)
[2019-09-03 06:12] LABS: ALBUMIN 3.5 g/dL (3.5-5.0); ALKALINE PHOSPHATASE 85 U/L (38-126); ANION GAP 9 (5-19); ASPARTATE AMINO TRANSFERASE 25 U/L (14-36); BILIRUBIN,TOTAL 0.5 mg/dL (0.2-1.3); BLOOD UREA NITROGEN 48 mg/dL (7-20); CALCIUM 9.2 mg/dL (8.4-10.2); CARBON DIOXIDE 25 mmol/L (22-30); CHLORIDE 101 mmol/L (98-107); GLUCOSE 130 mg/dL (75-110); POTASSIUM 4.4 mmol/L (3.6-5.0)
[2019-09-03] MEDS: FUROSEMIDE INJ/PF 40 MG/4 ML SDV IV SCH (10:24)
[2019-09-03] MEDS: SACUBITRIL/VALSARTAN 49 MG/51 MG TABLET PO SCH ×2 (10:24→17:33)
[2019-09-03] MEDS: ENOXAPARIN SODIUM INJ 40 MG/0.4 ML DISP.SYRIN SUBCUT SCH (10:24)
[2019-09-03] MEDS: AMLODIPINE BESYLATE 2.5 MG TABLET PO SCH ×2 (10:24→22:22)
[2019-09-03] MEDS: CIPROFLOXACIN 400 MG/D5W RTU 400 MG/200 ML RTUPB IV SCH (10:24)
--- NOTE | 2019-09-03 11:50 | PDOC PROGRESS REPORT ---
Subjective Progress Note for:: 09/03/19 Subjective:: No chest pain or difficulty with breathing. No fever or chills. No nausea, vomiting, or abdominal pain. OOB for self care participation at the time of my bedside visit. Reason For Visit: ACUTE RESPIRATORY DISTRESS, CAUSE, PE, HFPEF, Physical Exam Vital Signs: Temp Pulse Resp BP Pulse Ox 97.5 F 94 18 110/67 96 09/03/19 08:12 09/03/19 08:12 09/03/19 08:12 09/03/19 08:12 09/03/19 08:12 Intake & Output 09/02/19 09/03/19 09/04/19 06:59 06:59 06:59 Intake Total 1620 400 200 Output Total 450 Balance 1170 400 200 Weight 104.8 kg 105.3 kg Physical Exam: General appearance: PRESENT: no acute distress, obese Head exam: PRESENT: atraumatic, normocephalic Eye exam: PRESENT: conjunctiva pink. ABSENT: pallor, scleral icterus Mouth exam: PRESENT: moist Respiratory exam: PRESENT: clear to auscultation césar Cardiovascular exam: PRESENT: RRR, +S1, +S2. ABSENT: diastolic murmur, rubs, systolic murmur GI/Abdominal exam: PRESENT: normal bowel sounds, soft. ABSENT: distended, guarding, mass, organomegaly, rebound, tenderness Extremities exam: ABSENT: pedal edema Neurological exam: PRESENT: alert, awake, oriented to person, oriented to place, oriented to time, oriented to situation, CN II-XII grossly intact. ABSENT: motor sensory deficit Psychiatric exam: PRESENT: appropriate affect, normal mood. ABSENT: homicidal ideation, suicidal ideation Skin exam: PRESENT: dry, warm Results Laboratory Results: 09/03/19 05:22 09/03/19 05:22 09/03/19 09/03/19 05:22 05:22 WBC 4.5 RBC 4.77 Hgb 13.9 Hct 41.1 MCV 86 MCH 29.1 MCHC 33.8 RDW 15.3 H Plt Count 221 Seg Neutrophils % 42.5 Sodium 135.4 L Potassium 4.4 Chloride 101 Carbon Dioxide 25 Anion Gap 9 BUN 48 H Creatinine 1.84 H Est GFR ( Amer) 33 L Glucose 130 H Calcium 9.2 Total Bilirubin 0.5 AST 25 Alkaline Phosphatase 85 Total Protein 7.0 Albumin 3.5 06/04/20 06/04/20 06/04/20 02:05 06:45 06:45 Creatine Kinase 182 H CK-MB (CK-2) 2.53 Troponin I 0.050 0.074 NT-Pro-B Natriuret Pep 3850 H 08/31/19 08/31/19 08/31/19 10:45 10:45 18:35 Creatine Kinase 168 H 173 H CK-MB (CK-2) 2.88 Troponin I 0.059 NT-Pro-B Natriuret Pep 08/31/19 18:35 Creatine Kinase CK-MB (CK-2) 3.37 Troponin I 0.047 NT-Pro-B Natriuret Pep Impressions: Lung Scan-VQ NM 08/31/19 00:00 IMPRESSION: NORMAL PERFUSION LUNG SCAN. Renal Ultrasound 08/31/19 00:00 IMPRESSION: 1. Bilateral kidneys are increased in echogenicity, suggesting chronic medical renal disease. 2. Echogenic foci in the kidneys may represent intrarenal stones. There is no hydronephrosis. 3. Bilateral simple renal cysts. 4. Area of shadowing in the region of the gallbladder fossa. The appearance suggests a gallbladder filled with stones. There is also suggestion of gallbladder wall thickening. Chest X-Ray 08/31/19 02:03 IMPRESSION: Chronic changes. Mild crowding at the bases.. Assessment & Plan - Diagnosis (1) Acute hypoxemic respiratory failure Is this a current diagnosis for this admission?: Yes (2) Acute systolic heart failure Is this a current diagnosis for this admission?: Yes (3) Urinary tract infection, bacterial Is this a current diagnosis for this admission?: Yes (4) Proteus mirabilis infection Is this a current diagnosis for this admission?: Yes - Time Time Spent with patient: 25-34 minutes Level of Care: IMCU Medications reviewed and adjusted accordingly: Yes Anticipated discharge: Home with Homehealth Within: Other - Inpatient Certification Based on my medical assessment, after consideration of the patient's comorbidities, presenting symptoms, or acuity I expect that the services needed warrant INPATIENT care.: Yes I certify that my determination is in accordance with my understanding of Medicare's requirements for reasonable and necessary INPATIENT services [42 CFR 412.3e].: Yes Medical Necessity: Significant Comorbidiites Make Outpatient Treatment Too Risky, Need Close Monitoring Due to Risk of Patient Decompensation, Need For Continuous Telemetry Monitoring, Need for IV Antibiotics, Risk of Complication if Not Cared For in Hospital, Risk of Diagnosis Which Will Require Inpatient Eval/Care/Monitoring Post Hospital Care: D/C Data Designer Documentation - Plan Summary Plan Summary: D/C IV Lasix. Continue other current medication management.
--- NOTE | 2019-09-03 14:13 | Progress Note ---
Provider Note Provider Note: Cardiology PROGRESS NOTE by Dr. Gwen Russell on 09/03/2019. SUBJECTIVE: The patient denies any chest pain or discomfort. There is no shortness of breath. There is no PND orthopnea. There is no arrhythmias seen on the monitor. There is no leg edema at present. There is no dizziness near syncope or syncope. Renal function slightly worse. There is no signs of any infection hence we will stop the patient Cipro. PHYSICAL EXAMINATION: The patient is moderately obese. In no acute distress. Selected Entries 09/03/19 09/03/19 08:12 11:14 Temperature 97.3 F Temperature Axillary Source Pulse Rate 77 Respiratory 16 Rate Blood Pressure 107/70 Blood Pressure 82 Mean BP Location Left Arm BP Position Sitting O2 Sat by Pulse 95% Oximetry Oxygen Delivery Room Air Method HEAD: Is atraumatic normocephalic. EYES: Pupils are equal round regular reactive to light accommodation. Extraocular movements are normal. There is no conjunctival pallor. There is no scleral icterus. EARS: Tympanic membranes are intact. External auditory canals are clear. NOSE: There is no deviated nasal septum. There is no inflammation nasal mucous membrane. MOUTH: Mucous membranes of the mouth are moist. Tongue is moist. There is no ulcers. There is no bleeding from the gums. THROAT: There is no redness of the oropharynx. There is no exudates. SKIN: There is no skin rashes or skin lesions. There seems to be venous stasis dermatitis of the lower extremities. NECK: Supple. There seems to be mild JVD. Carotids are equal there is no bruit. There is no goiter. There is no lymphadenopathy. There is no accessory muscle respiration use. TRACHEA is central. LUNGS: There is a few bibasilar rales of CHF. There is no rhonchi wheezing. Heart: S1 is preserved. There is no S3 gallop there is no S4 gallop. Systolic murmur left sternal border and the apex there is no rub. ABDOMEN: Soft obese nontender there is hepatosplenomegaly bowel sounds are well heard. EXTREMITIES: Femorals are deep. Femorals are diminished there is no femoral bruits. Leg pulses are diminished. There is trace pedal edema bilaterally with early/mild venous stasis dermatitis. There is no cellulitis. There is no DVT. There is no cyanosis or clubbing. There is no calf tenderness. WEAPONS SPECIALIST: The patient is conscious awake alert oriented x3 with no focal deficit. PSYCHIATRIC: The patient judgment insight are intact her affect is normal, Labs- All tests 24 hr 09/03/19 09/03/19 09/03/19 05:22 05:22 05:22 WBC 4.5 RBC 4.77 Hgb 13.9 Hct 41.1 MCV 86 MCH 29.1 MCHC 33.8 RDW 15.3 H Plt Count 221 Lymph % (Auto) 36.6 [place] % (Auto) 16.1 H Eos % (Auto) 3.6 Baso % (Auto) 1.2 Absolute Neuts (auto) 1.9 Absolute Lymphs (auto) 1.6 Absolute Monos (auto) 0.7 Absolute Eos (auto) 0.2 Absolute Basos (auto) 0.1 Seg Neutrophils % 42.5 Sodium 135.4 L Potassium 4.4 Chloride 101 Carbon Dioxide 25 Anion Gap 9 BUN 48 H Creatinine 1.84 H Est GFR ( Amer) 33 L Est GFR (MDRD) Non-Af 27 L Glucose 130 H Calcium 9.2 Total Bilirubin 0.5 Direct Bilirubin 0.0 Neonat Total Bilirubin Not Reportable Neonat Direct Bilirubin Not Reportable Neonat Indirect Bili Not Reportable AST 25 ALT 32 Alkaline Phosphatase 85 NT-Pro-B Natriuret Pep 1260 H Total Protein 7.0 Albumin 3.5 Lung Scan-VQ NM 08/31/19 00:00 IMPRESSION: NORMAL PERFUSION LUNG SCAN. Renal Ultrasound 08/31/19 00:00 IMPRESSION: 1. Bilateral kidneys are increased in echogenicity, suggesting chronic medical renal disease. 2. Echogenic foci in the kidneys may represent intrarenal stones. There is no hydronephrosis. 3. Bilateral simple renal cysts. 4. Area of shadowing in the region of the gallbladder fossa. The appearance suggests a gallbladder filled with stones. There is also suggestion of gallbladder wall thickening. Chest X-Ray 08/31/19 02:03 IMPRESSION: Chronic changes. Mild crowding at the bases.. IMPRESSION/RECOMMENDATION: 1. Acute systolic left ventricular and right ventricular heart failure. [Suspect this is acute on chronic biventricular systolic heart failure. Continue diuretics and his Entresto. Would increase the patient's Coreg to 12 .5 mg p.o. every 12 hours and increase further as tolerated to a maximum of 25 mg p.o. every 12 hours. 2. Cardiomyopathy with moderately reduced LV ejection fraction 40%. Would recommend later once his CHF is treated and patient's compensated from a CHF will get a IV Lexiscan Cardiolite stress test to make sure patient does not have underlying coronary artery disease. 3. Severe pulmonary hypertension.: Suspect the patient has underlying sleep apnea. Part of the pulmonary hypertension secondary to left heart failure, and part due to most likely sleep apnea.. Continue amlodipine. 4. Hypertension: Blood pressure well controlled, . 5. Moderate to severe mitral regurgitation: Continue current treatment treatment of the heart failure will definitely improve the patient's mitral regurg. If this persists then the patient may need a BETY to see if she has some deformity of the mitral leaflet that can be corrected. 6. Moderate tricuspid regurgitation with moderate pulmonary hypertension. 7. Acute renal insufficiency. Avoid nephrotoxic drugs. 8. The patient is on Cipro. The patient has no cough or any lung infection. We will repeat the patient's chest x-ray. There is also no symptoms or evidence of urinary tract infection. Hence we will discontinue the patient Cipro. This was discussed with Dr. Saul. 9. Most likely the patient has sleep apnea: Would recommend the patient have a sleep study done as an outpatient. 10. The patient has multiple CAD risk factors. Hence would recommend IV Lexiscan Cardiolite stress test when the CHF is compensated. This can be done as an outpatient. This is been discussed with the patient. Medications reviewed. Medical regimen management plan discussed with attending provider covering Dr. Rai. Medical decision making is of high complexity ,since need to discontinue one of the patient's medication, and ordering a chest x-ray.. 40 minutes spent on the patient more than 50% time spent direct patient care. Will follow.
--- NOTE | 2019-09-03 15:40 | RADIOLOGY REPORT (SQ) ---
EXAM DESCRIPTION: CHEST SINGLE VIEW IMAGES COMPLETED DATE/TIME: 09/03/2019 2:58 pm REASON FOR STUDY: CHF COMPARISON: 08/31/2019 TECHNIQUE: Single frontal radiographic view of the chest acquired. NUMBER OF VIEWS: One view. LIMITATIONS: None. FINDINGS: LUNGS AND PLEURA: No pneumothorax. No consolidation or pleural effusion. MEDIASTINUM AND HILAR STRUCTURES: Stable. HEART AND VASCULAR STRUCTURES: Stable. BONES: No acute findings. HARDWARE: None in the chest. OTHER: No other significant finding. IMPRESSION: NO ACUTE FINDINGS. TECHNICAL DOCUMENTATION: JOB ID: [id number] [id number] 2010 [employer]- All Rights Reserved Reading location - IP/workstation name: [facility]
[2019-09-04 05:26] LABS: HEMATOCRIT 39.4 % (36.0-47.0); MEAN CORPUSCULAR VOLUME 88 fl (80-97); PLATELET COUNT 206 10^3/uL (150-450); RED BLOOD COUNT 4.49 10^6/uL (3.72-5.28); RED CELL DISTRIBUTION WIDTH 15.3 % (11.5-14.0); WHITE BLOOD COUNT 5.3 10^3/uL (4.0-10.5)
[2019-09-04] MEDS: CARVEDILOL 12.5 MG TABLET PO SCH ×2 (05:29→17:13)
[2019-09-04 08:21] LABS: APPEARANCE,URINE CLEAR; BILIRUBIN,URINE NEGATIVE (NEGATIVE); COLOR,URINE YELLOW; GLUCOSE, URINE NEGATIVE (NEGATIVE); KETONES,URINE NEGATIVE (NEGATIVE); LEUKOCYTE ESTERASE,URINE NEGATIVE (NEGATIVE); NITRITE,URINE NEGATIVE (NEGATIVE); PROTEIN,URINE NEGATIVE (NEGATIVE); URINE SPECIFIC GRAVITY 1.016; UROBILINOGEN,URINE NEGATIVE mg/dL (<2.0)
[2019-09-04] MEDS: SACUBITRIL/VALSARTAN 49 MG/51 MG TABLET PO SCH ×2 (09:09→17:13)
[2019-09-04] MEDS: AMLODIPINE BESYLATE 2.5 MG TABLET PO SCH ×2 (09:09→21:24)
[2019-09-04] MEDS: ENOXAPARIN SODIUM INJ 40 MG/0.4 ML DISP.SYRIN SUBCUT SCH (09:10)
[2019-09-04 14:33] LABS: ANION GAP 8 (5-19); BLOOD UREA NITROGEN 52 mg/dL (7-20); CALCIUM 8.9 mg/dL (8.4-10.2); CARBON DIOXIDE 26 mmol/L (22-30); CHLORIDE 102 mmol/L (98-107); GLUCOSE 120 mg/dL (75-110); POTASSIUM 4.2 mmol/L (3.6-5.0)
[2019-09-04 15:36] LABS: ALBUMIN UR 56.7 % (.); ALPHA-1-GLOBULIN URINE 6.7 % (.); ALPHA-2-GLOBULIN URINE 11.2 % (.); GAMMA GLOBULIN URINE 8.6 % (.); M-SPIKE % UR Not Observed % (Not Observ); PROTEIN TOTAL URINE 8.9 mg/dL (Not Estab.)
--- NOTE | 2019-09-04 19:32 | Progress Note ---
Provider Note Provider Note: CARDIOLOGY PROGRESS NOTE by Dr. Gwen Russell on 09/04/2019. OBJECTIVE: The patient today had asymptomatic 16 beat of nonsustained ventricular tachycardia. There was no hemodynamic compromise. The patient's potassium and magnesium were within normal limits. Patient denies any chest pain or discomfort. There is no shortness of breath. Leg edema is resolved. There is no PND orthopnea. She denies any chest pain or discomfort.. There is no dizziness palpitations or near syncope or syncope. The patient's chest x-ray done yesterday shows no evidence of heart failure PHYSICAL EXAMINATION: The patient is moderately obese. In no acute distress. Selected Entries 09/04/19 16:40 Temperature 97.3 F Temperature Oral Source Pulse Rate 66 Respiratory 18 Rate Blood Pressure 109/74 Blood Pressure 85 Mean BP Location Left Arm BP Position Supine O2 Sat by Pulse 100 Oximetry Oxygen Delivery Room Air Method HEAD: Is atraumatic normocephalic. EYES: Pupils are equal round regular reactive to light accommodation. Extraocular movements are normal. There is no conjunctival pallor. There is no scleral icterus. EARS: Tympanic membranes are intact. External auditory canals are clear. NOSE: There is no deviated nasal septum. There is no inflammation nasal mucous membrane. MOUTH: Mucous membranes of the mouth are moist. Tongue is moist. There is no ulcers. There is no bleeding from the gums. THROAT: There is no redness of the oropharynx. There is no exudates. SKIN: There is no skin rashes or skin lesions. There seems to be venous stasis dermatitis of the lower extremities. NECK: Supple. There seems to be mild JVD. Carotids are equal there is no bruit. There is no goiter. There is no lymphadenopathy. There is no accessory muscle respiration use. TRACHEA is central. LUNGS: There is a few bibasilar rales of CHF. There is no rhonchi wheezing. Heart: S1 is preserved. There is no S3 gallop there is no S4 gallop. Systolic murmur left sternal border and the apex there is no rub. ABDOMEN: Soft obese nontender there is hepatosplenomegaly bowel sounds are well heard. EXTREMITIES: Femorals are deep. Femorals are diminished there is no femoral bruits. Leg pulses are diminished. There is trace pedal edema bilaterally with early/mild venous stasis dermatitis. There is no cellulitis. There is no DVT. There is no cyanosis or clubbing. There is no calf tenderness. TAIL DOGGER: The patient is conscious awake alert oriented x3 with no focal deficit. PSYCHIATRIC: The patient judgment insight are intact her affect is normal, There is no accurate intake output record on this patient. Labs- All tests 24 hr 09/04/19 09/04/19 09/04/19 04:34 04:34 07:32 WBC 5.3 RBC 4.49 Hgb 13.0 Hct 39.4 MCV 88 MCH 29.0 MCHC 33.0 RDW 15.3 H Plt Count 206 Sodium 135.9 L Potassium 4.2 Chloride 102 Carbon Dioxide 26 Anion Gap 8 BUN 52 H Creatinine 1.64 H Est GFR ( Amer) 38 L Est GFR (MDRD) Non-Af 31 L Glucose 120 H Calcium 8.9 Magnesium 2.1 Urine Color YELLOW Urine Appearance CLEAR Urine pH 5.0 Ur Specific [place] 1.016 Urine Protein NEGATIVE Urine Glucose (UA) NEGATIVE Urine Ketones NEGATIVE Urine Blood NEGATIVE Urine Nitrite NEGATIVE Urine Bilirubin NEGATIVE Urine Urobilinogen NEGATIVE Ur Leukocyte Esterase NEGATIVE Urine WBC (Auto) 2 Urine RBC (Auto) 0 Urine Bacteria (Auto) TRACE Squamous Epi Cells Auto 2 Urine Mucus (Auto) RARE Urine Ascorbic Acid NEGATIVE Lung Scan-VQ NM 08/31/19 00:00 IMPRESSION: NORMAL PERFUSION LUNG SCAN. Renal Ultrasound 08/31/19 00:00 IMPRESSION: 1. Bilateral kidneys are increased in echogenicity, suggesting chronic medical renal disease. 2. Echogenic foci in the kidneys may represent intrarenal stones. There is no hydronephrosis. 3. Bilateral simple renal cysts. 4. Area of shadowing in the region of the gallbladder fossa. The appearance suggests a gallbladder filled with stones. There is also suggestion of gallbladder wall thickening. Chest X-Ray 08/31/19 02:03 IMPRESSION: Chronic changes. Mild crowding at the bases.. Chest X-Ray 09/03/19 00:00 IMPRESSION: NO ACUTE FINDINGS. IMPRESSION/RECOMMENDATION: 1. Nonsustained medical tachycardia: In view of this would increase the patient's beta-benoit further. If there is recurrence then would start the patient on amiodarone. We will also get a 30-day event monitor as an outpatient. Would also get a IV Lexiscan Cardiolite stress test as an outpatient.. 2. Acute systolic left ventricular and right ventricular heart failure. [Suspect this is acute on chronic biventricular systolic heart failure. Continue diuretics and his Entresto. Her congestive heart failure now is well compensated. In view of the nonsustained ventricular tachycardia will further increase patient's Coreg to 37.25 milligrams p.o. twice daily. 3. Cardiomyopathy with moderately reduced LV ejection fraction 40%. Would recommend later once his CHF is treated and patient's compensated from a CHF will get a IV Lexiscan Cardiolite stress test to make sure patient does not have underlying coronary artery disease. 4. Severe pulmonary hypertension.: Suspect the patient has underlying sleep apnea. Part of the pulmonary hypertension secondary to left heart failure, and part due to most likely sleep apnea.. Continue amlodipine. 5. Hypertension: Blood pressure well controlled, . 6 Moderate to severe mitral regurgitation: Continue current treatment treatment of the heart failure will definitely improve the patient's mitral regurg. If this persists then the patient may need a BETY to see if she has some deformity of the mitral leaflet that can be corrected. 7. Moderate tricuspid regurgitation with moderate pulmonary hypertension. 8. Acute renal insufficiency. Avoid nephrotoxic drugs. 9. The patient is on Cipro. The patient has no cough or any lung infection. With the stopping of pro renal function is marginally improved. 10. Most likely the patient has sleep apnea: Would recommend the patient have a sleep study done as an outpatient. 11. The patient has multiple CAD risk factors. Hence would recommend IV Lexiscan Cardiolite stress test when the CHF is compensated. This can be done as an outpatient. This is been discussed with the patient. Medications reviewed. Medical regimen and management plan discussed with attending provider, Dr. Rai. Medical decision making is of high complexity ,since need to increase the dose of one of the patient's medication, and ordering a chest x-ray.. 40 minutes spent on the patient more than 50% time spent direct patient care. Will follow.
--- NOTE | 2019-09-04 21:59 | PDOC PROGRESS REPORT ---
Subjective Progress Note for:: 09/04/19 Subjective:: Patient seen by the bedside, she had episode of nonsustained V. tach, Reason For Visit: ACUTE RESPIRATORY DISTRESS, CAUSE, PE, HFPEF, Physical Exam Vital Signs: Temp Pulse Resp BP Pulse Ox 97.3 F 70 18 109/74 100 09/04/19 16:40 09/04/19 19:00 09/04/19 16:40 09/04/19 16:40 09/04/19 16:40 Intake & Output 09/03/19 09/04/19 09/05/19 06:59 06:59 06:59 Intake Total 400 1476 939 Output Total 400 Balance 400 1476 539 Weight 105.3 kg 105.7 kg General appearance: PRESENT: no acute distress Head exam: PRESENT: atraumatic, normocephalic Eye exam: PRESENT: PERRLA Ear exam: PRESENT: normal external ear exam Mouth exam: PRESENT: moist, tongue midline Respiratory exam: PRESENT: clear to auscultation césar Cardiovascular exam: PRESENT: RRR, +S1, +S2 Pulses: PRESENT: normal dorsalis pedis pul, +2 pedal pulses bilateral Vascular exam: PRESENT: normal capillary refill GI/Abdominal exam: PRESENT: normal bowel sounds, soft Rectal exam: PRESENT: deferred Neurological exam: PRESENT: alert, CN II-XII grossly intact Psychiatric exam: PRESENT: appropriate affect, normal mood Skin exam: PRESENT: dry, intact, warm. ABSENT: cyanosis, rash Results Laboratory Results: 09/04/19 04:34 09/04/19 04:34 09/04/19 09/04/19 09/04/19 04:34 04:34 07:32 WBC 5.3 RBC 4.49 Hgb 13.0 Hct 39.4 MCV 88 MCH 29.0 MCHC 33.0 RDW 15.3 H Plt Count 206 Sodium 135.9 L Potassium 4.2 Chloride 102 Carbon Dioxide 26 Anion Gap 8 BUN 52 H Creatinine 1.64 H Est GFR ( Amer) 38 L Glucose 120 H Calcium 8.9 Magnesium 2.1 Urine Color YELLOW Urine Appearance CLEAR Urine pH 5.0 Ur Specific [place] 1.016 Urine Protein NEGATIVE Urine Glucose (UA) NEGATIVE Urine Ketones NEGATIVE Urine Blood NEGATIVE Urine Nitrite NEGATIVE Ur Leukocyte Esterase NEGATIVE Urine WBC (Auto) 2 Urine RBC (Auto) 0 08/31/19 08/31/1920 02:05 06:45 06:45 Creatine Kinase 182 H CK-MB (CK-2) 2.53 Troponin I 0.050 0.074 NT-Pro-B Natriuret Pep 3850 H 08/31/19 08/31/19 08/31/19 10:45 10:45 18:35 Creatine Kinase 168 H 173 H CK-MB (CK-2) 2.88 Troponin I 0.059 NT-Pro-B Natriuret Pep 08/31/19 09/03/19 18:35 05:22 Creatine Kinase CK-MB (CK-2) 3.37 Troponin I 0.047 NT-Pro-B Natriuret Pep 1260 H Impressions: Lung Scan-VQ NM 08/31/19 00:00 IMPRESSION: NORMAL PERFUSION LUNG SCAN. Renal Ultrasound 08/31/19 00:00 IMPRESSION: 1. Bilateral kidneys are increased in echogenicity, suggesting chronic medical renal disease. 2. Echogenic foci in the kidneys may represent intrarenal stones. There is no hydronephrosis. 3. Bilateral simple renal cysts. 4. Area of shadowing in the region of the gallbladder fossa. The appearance suggests a gallbladder filled with stones. There is also suggestion of gallbladder wall thickening. Chest X-Ray 09/03/19 00:00 IMPRESSION: NO ACUTE FINDINGS. Assessment & Plan - Diagnosis (1) Acute systolic heart failure Is this a current diagnosis for this admission?: Yes (2) CKD (chronic kidney disease) Qualifiers: Chronic kidney disease stage: unspecified stage Qualified Code(s): N18.9 - Chronic kidney disease, unspecified Is this a current diagnosis for this admission?: Yes (3) Acute hypoxemic respiratory failure Is this a current diagnosis for this admission?: Yes (4) Nonsustained ventricular tachycardia Is this a current diagnosis for this admission?: Yes Plan: Coreg dose is increased (5) Pulmonary hypertension Is this a current diagnosis for this admission?: Yes - Time Time Spent with patient: 25-34 minutes Level of Care: IMCU Medications reviewed and adjusted accordingly: Yes
[2019-09-05] MEDS: CARVEDILOL 12.5 MG TABLET PO SCH ×2 (05:30→18:02)
[2019-09-05] MEDS: ENOXAPARIN SODIUM INJ 40 MG/0.4 ML DISP.SYRIN SUBCUT SCH (09:49)
[2019-09-05] MEDS: AMLODIPINE BESYLATE 2.5 MG TABLET PO SCH ×2 (09:49→22:15)
[2019-09-05] MEDS: SACUBITRIL/VALSARTAN 49 MG/51 MG TABLET PO SCH ×2 (09:49→18:02)
[2019-09-05 14:37] LABS: A/G RATIO. 0.8 (0.7-1.7); ALBUMIN 3 3.1 g/dL (2.9-4.4); ALPHA-1-GLOBULIN 0.3 g/dL (0.0-0.4); BETA GLOBULIN 1.1 g/dL (0.7-1.3); GAMMA GLOBULINS 1.7 g/dL (0.4-1.8); IMMUNOGLOBULIN A 452 mg/dL (87-352); IMMUNOGLOBULIN G 1730 mg/dL (586-1602); IMMUNOGLOBULIN M 100 mg/dL (26-217); MONOCLONAL-SPIKE Not Observed g/dL (Not Observ); PROTEIN TOTAL SERUM 7.3 g/dL (6.0-8.5)
--- NOTE | 2019-09-05 15:32 | Progress Note ---
Provider Note Provider Note: CARDIOLOGY PROGRESS NOTE by Dr. Meliton Ho on 09/05/2019. SUBJECTIVE: The patient continues to have a some and asymptomatic few beats of nonsustained ventricular tachycardia. She denies any chest pain or discomfort. There is no shortness of breath. There is no PND orthopnea or leg edema. There is no TIA CVA symptoms. The patient denies any palpitations dizziness near syncope or syncope. Decision has been made to start the patient on amiodarone. The side effects of amiodarone have been discussed at length with the patient. We will also get thyroid function tests and liver function test in the morning. PHYSICAL EXAMINATION: The patient is moderately obese. In no acute distress. Selected Entries 09/05/19 15:30 Temperature 97.6 F Temperature Oral Source Pulse Rate 76 Respiratory 18 Rate Blood Pressure 126/74 H Blood Pressure 91 Mean BP Location Left Arm BP Position Supine O2 Sat by Pulse 100 Oximetry Oxygen Delivery Room Air Method HEAD: Is atraumatic normocephalic. EYES: Pupils are equal round regular reactive to light accommodation. Extraocular movements are normal. There is no conjunctival pallor. There is no scleral icterus. EARS: Tympanic membranes are intact. External auditory canals are clear. NOSE: There is no deviated nasal septum. There is no inflammation nasal mucous membrane. MOUTH: Mucous membranes of the mouth are moist. Tongue is moist. There is no ulcers. There is no bleeding from the gums. THROAT: There is no redness of the oropharynx. There is no exudates. SKIN: There is no skin rashes or skin lesions. There seems to be venous stasis dermatitis of the lower extremities. NECK: Supple. There seems to be mild JVD. Carotids are equal there is no bruit. There is no goiter. There is no lymphadenopathy. There is no accessory muscle respiration use. TRACHEA is central. LUNGS: There is a few bibasilar rales of CHF. There is no rhonchi wheezing. Heart: S1 is preserved. There is no S3 gallop there is no S4 gallop. Systolic murmur left sternal border and the apex there is no rub. ABDOMEN: Soft obese nontender there is hepatosplenomegaly bowel sounds are well heard. EXTREMITIES: Femorals are deep. Femorals are diminished there is no femoral bruits. Leg pulses are diminished. There is trace pedal edema bilaterally with early/mild venous stasis dermatitis. There is no cellulitis. There is no DVT. There is no cyanosis or clubbing. There is no calf tenderness. ANIMAL HUSBANDRY TECHNICIAN: The patient is conscious awake alert oriented x3 with no focal deficit. PSYCHIATRIC: The patient judgment insight are intact her affect is normal, There is no accurate intake output record on this patient. Labs- All tests 24 hr 09/01/19 09/01/19 09/05/19 11:42 22:51 17:59 WBC 4.5 RBC 4.37 Hgb 12.6 Hct 38.5 MCV 88 MCH 28.9 MCHC 32.7 RDW 15.6 H Plt Count 201 Lymph % (Auto) 27.8 [place] % (Auto) 12.0 Eos % (Auto) 3.9 Baso % (Auto) 1.2 Absolute Neuts (auto) 2.5 Absolute Lymphs (auto) 1.2 Absolute Monos (auto) 0.5 Absolute Eos (auto) 0.2 Absolute Basos (auto) 0.1 Seg Neutrophils % 55.1 Sodium Potassium Chloride Carbon Dioxide Anion Gap BUN Creatinine Est GFR ( Amer) Est GFR (MDRD) Non-Af Glucose Calcium Total Bilirubin Direct Bilirubin Neonat Total Bilirubin Neonat Direct Bilirubin Neonat Indirect Bili AST ALT Alkaline Phosphatase Total Protein 7.3 Albumin Globulin 4.2 H Alb/Glob Ratio Alt Meth 0.8 Heocz-0-Esbhpasxw 0.3 Lkzkl-6-Txlpfrolx 1.1 H Beta Globulins 1.1 Gamma Globulins 1.7 M-Kp Not Observed Immunoglobulin A 452 H Immunoglobulin G 1730 H Immunoglobulin M 100 Serum Immunofixation Comment Immunofixation Note Comment Urine Total Protein 8.9 Urine Albumin 56.7 U Emsqb-8-Mhtytzgb 6.7 U Mlpay-0-Yeqijamm 11.2 U Beta Globulin 16.7 U Gamma Globulin 8.6 U Random M-Kp (%) Not Observed Urine PEP Note Comment Albumin (HARJINDER) 3.1 09/05/19 17:59 WBC RBC Hgb Hct MCV MCH MCHC RDW Plt Count Lymph % (Auto) [place] % (Auto) Eos % (Auto) Baso % (Auto) Absolute Neuts (auto) Absolute Lymphs (auto) Absolute Monos (auto) Absolute Eos (auto) Absolute Basos (auto) Seg Neutrophils % Sodium 136.7 L Potassium 4.3 Chloride 102 Carbon Dioxide 27 Anion Gap 8 BUN 47 H Creatinine 1.51 H Est GFR ( Amer) 41 L Est GFR (MDRD) Non-Af 34 L Glucose 192 H Calcium 8.8 Total Bilirubin 0.3 Direct Bilirubin 0.0 Neonat Total Bilirubin Not Reportable Neonat Direct Bilirubin Not Reportable Neonat Indirect Bili Not Reportable AST 17 ALT 23 Alkaline Phosphatase 72 Total Protein 6.3 Albumin 3.3 L Globulin Alb/Glob Ratio Alt Meth Ocvco-4-Vvkocrxcw Ipxhm-5-Zlwmhzdbe Beta Globulins Gamma Globulins M-Kp Immunoglobulin A Immunoglobulin G Immunoglobulin M Serum Immunofixation Immunofixation Note Urine Total Protein Urine Albumin U Uzzme-3-Uqwxolku U Iwynd-5-Hingvngq U Beta Globulin U Gamma Globulin U Random M-Kp (%) Urine PEP Note Albumin (HARJINDER) Lung Scan-VQ NM 08/31/19 00:00 IMPRESSION: NORMAL PERFUSION LUNG SCAN. Renal Ultrasound 08/31/19 00:00 IMPRESSION: 1. Bilateral kidneys are increased in echogenicity, suggesting chronic medical renal disease. 2. Echogenic foci in the kidneys may represent intrarenal stones. There is no hydronephrosis. 3. Bilateral simple renal cysts. 4. Area of shadowing in the region of the gallbladder fossa. The appearance suggests a gallbladder filled with stones. There is also suggestion of gallbladder wall thickening. Chest X-Ray 08/31/19 02:03 IMPRESSION: Chronic changes. Mild crowding at the bases.. Chest X-Ray 09/03/19 00:00 IMPRESSION: NO ACUTE FINDINGS. IMPRESSION/RECOMMENDATION: 1. Nonsustained medical tachycardia: In view of this would increase the patient's beta-benoit further. Will start the patient on amiodarone. We will also get a 30-day event monitor as an outpatient. Will check liver function tests and thyroid function test. Later would schedule the patient for outpatient full PFT with DLCO as a baseline since the patient is being started on amiodarone. 2. Acute systolic left ventricular and right ventricular heart failure. [Suspect this is acute on chronic biventricular systolic heart failure. Continue diuretics and his Entresto. Her congestive heart failure now is well compensated. In view of the nonsustained ventricular tachycardia will further increase patient's Coreg to 37.25 milligrams p.o. twice daily. 3. Cardiomyopathy with moderately reduced LV ejection fraction 40%. Would recommend later once his CHF is treated and patient's compensated from a CHF will get a IV Lexiscan Cardiolite stress test to make sure patient does not have underlying coronary artery disease. 4. Severe pulmonary hypertension.: Suspect the patient has underlying sleep apnea. Part of the pulmonary hypertension secondary to left heart failure, and part due to most likely sleep apnea.. Continue amlodipine. 5. Hypertension: Blood pressure well controlled, . 6 Moderate to severe mitral regurgitation: Continue current treatment treatment of the heart failure will definitely improve the patient's mitral regurg. If this persists then the patient may need a BETY to see if she has some deformity of the mitral leaflet that can be corrected. 7. Moderate tricuspid regurgitation with moderate pulmonary hypertension. 8. Acute renal insufficiency. Avoid nephrotoxic drugs. 9. The patient is on Cipro. The patient has no cough or any lung infection. With the stopping of pro renal function is marginally improved. 10. Most likely the patient has sleep apnea: Would recommend the patient have a sleep study done as an outpatient. 11. The patient has multiple CAD risk factors. Hence would recommend IV Lexiscan Cardiolite stress test when the CHF is compensated. This can be done as an outpatient. This is been discussed with the patient. Medications reviewed. Medical regimen and management plan discussed with attending provider, Dr. Rai. Medical decision making is of high complexity ,since need to start the patient on a new medication. 40 minutes spent on the patient more than 50% time spent direct patient care. Will follow.
[2019-09-05] MEDS: AMIODARONE HCL 200 MG TABLET PO SCH (16:04)
[2019-09-05 18:29] LABS: ABSOLUTE BASOPHILS # (AUTO) 0.1 10^3/uL (0.0-0.2); ABSOLUTE EOSINOPHILS # (AUTO) 0.2 10^3/uL (0.0-0.6); ABSOLUTE LYMPHOCYTES (AUTO) 1.2 10^3/uL (0.5-4.7); ABSOLUTE MONOCYTES (AUTO) 0.5 10^3/uL (0.1-1.4); ABSOLUTE NEUT (AUTO) 2.5 10^3/uL (1.7-8.2); BASOPHILS % (AUTO) 1.2 % (0-2); EOSINOPHILS % (AUTO) 3.9 % (0-6); HEMATOCRIT 38.5 % (36.0-47.0); HEMOGLOBIN 12.6 g/dL (12.0-15.5); LYMPHOCYTES % (AUTO) 27.8 % (13-45); MEAN CORPUSCULAR HEMOGLOBIN 28.9 pg (27.0-33.4); MEAN CORPUSCULAR HGB CONC 32.7 g/dL (32.0-36.0); MEAN CORPUSCULAR VOLUME 88 fl (80-97); PLATELET COUNT 201 10^3/uL (150-450); RED BLOOD COUNT 4.37 10^6/uL (3.72-5.28); RED CELL DISTRIBUTION WIDTH 15.6 % (11.5-14.0); SEGMENTED NEUTROPHILS % (AUTO) 55.1 % (42-78); TOTAL CELLS COUNTED % (AUTO) 100 %; WHITE BLOOD COUNT 4.5 10^3/uL (4.0-10.5)
[2019-09-05 19:02] LABS: ALBUMIN 3.3 g/dL (3.5-5.0); ALKALINE PHOSPHATASE 72 U/L (38-126); ANION GAP 8 (5-19); ASPARTATE AMINO TRANSFERASE 17 U/L (14-36); BILIRUBIN,TOTAL 0.3 mg/dL (0.2-1.3); BLOOD UREA NITROGEN 47 mg/dL (7-20); CALCIUM 8.8 mg/dL (8.4-10.2); CARBON DIOXIDE 27 mmol/L (22-30); CHLORIDE 102 mmol/L (98-107); GLUCOSE 192 mg/dL (75-110); POTASSIUM 4.3 mmol/L (3.6-5.0); TOTAL PROTEIN 6.3 g/dL (6.3-8.2)
--- NOTE | 2019-09-05 21:56 | PDOC PROGRESS REPORT ---
Subjective Progress Note for:: 09/05/19 Subjective:: Patient seen by the bedside, she was started on amiodarone because of nonsustained V. tach Reason For Visit: ACUTE RESPIRATORY DISTRESS, CAUSE, PE, HFPEF, Physical Exam Vital Signs: Temp Pulse Resp BP Pulse Ox 97.6 F 75 18 126/74 H 100 09/05/19 15:30 09/05/19 19:00 09/05/19 15:30 09/05/19 15:30 09/05/19 15:30 Intake & Output 09/04/19 09/05/19 09/06/19 06:59 06:59 06:59 Intake Total 1476 1089 Output Total 400 Balance 1476 689 Weight 105.7 kg 107.3 kg General appearance: PRESENT: no acute distress Eye exam: PRESENT: PERRLA Respiratory exam: PRESENT: clear to auscultation césar Cardiovascular exam: PRESENT: +S1, +S2 GI/Abdominal exam: PRESENT: soft Results Laboratory Results: 09/05/19 17:59 09/05/19 17:59 09/01/19 09/05/19 09/05/19 22:51 17:59 17:59 WBC 4.5 RBC 4.37 Hgb 12.6 Hct 38.5 MCV 88 MCH 28.9 MCHC 32.7 RDW 15.6 H Plt Count 201 Seg Neutrophils % 55.1 Sodium 136.7 L Potassium 4.3 Chloride 102 Carbon Dioxide 27 Anion Gap 8 BUN 47 H Creatinine 1.51 H Est GFR ( Amer) 41 L Glucose 192 H Calcium 8.8 Total Bilirubin 0.3 AST 17 Alkaline Phosphatase 72 Total Protein 7.3 6.3 Albumin 3.3 L 08/31/19 06:53 Blood Blood Culture - Final NO GROWTH IN 5 DAYS 08/31/19 06:45 Blood Blood Culture - Final NO GROWTH IN 5 DAYS 08/31/19 08/31/19 08/31/19 02:05 06:45 06:45 Creatine Kinase 182 H CK-MB (CK-2) 2.53 Troponin I 0.050 0.074 NT-Pro-B Natriuret Pep 3850 H 08/31/19 08/31/19 08/31/19 10:45 10:45 18:35 Creatine Kinase 168 H 173 H CK-MB (CK-2) 2.88 Troponin I 0.059 NT-Pro-B Natriuret Pep 08/31/19 09/03/19 18:35 05:22 Creatine Kinase CK-MB (CK-2) 3.37 Troponin I 0.047 NT-Pro-B Natriuret Pep 1260 H Impressions: Lung Scan-VQ NM 08/31/19 00:00 IMPRESSION: NORMAL PERFUSION LUNG SCAN. Renal Ultrasound 08/31/19 00:00 IMPRESSION: 1. Bilateral kidneys are increased in echogenicity, suggesting chronic medical renal disease. 2. Echogenic foci in the kidneys may represent intrarenal stones. There is no hydronephrosis. 3. Bilateral simple renal cysts. 4. Area of shadowing in the region of the gallbladder fossa. The appearance suggests a gallbladder filled with stones. There is also suggestion of gallbladder wall thickening. Chest X-Ray 09/03/19 00:00 IMPRESSION: NO ACUTE FINDINGS. Assessment & Plan - Diagnosis (1) Acute systolic heart failure Is this a current diagnosis for this admission?: Yes Plan: Stable (2) CKD (chronic kidney disease) Qualifiers: Chronic kidney disease stage: unspecified stage Qualified Code(s): N18.9 - Chronic kidney disease, unspecified Is this a current diagnosis for this admission?: Yes (3) Acute hypoxemic respiratory failure Is this a current diagnosis for this admission?: Yes (4) Nonsustained ventricular tachycardia Is this a current diagnosis for this admission?: Yes Plan: Started on amiodarone (5) Pulmonary hypertension Is this a current diagnosis for this admission?: Yes - Time Time Spent with patient: 25-34 minutes Level of Care: [facility]
[2019-09-06 05:57] LABS: HEMATOCRIT 37.6 % (36.0-47.0); HEMOGLOBIN 12.5 g/dL (12.0-15.5); MEAN CORPUSCULAR HGB CONC 33.3 g/dL (32.0-36.0); MEAN CORPUSCULAR VOLUME 87 fl (80-97); PLATELET COUNT 198 10^3/uL (150-450); RED BLOOD COUNT 4.33 10^6/uL (3.72-5.28); RED CELL DISTRIBUTION WIDTH 15.7 % (11.5-14.0); WHITE BLOOD COUNT 4.2 10^3/uL (4.0-10.5)
[2019-09-06 06:09] LABS: ALBUMIN 3.2 g/dL (3.5-5.0); ALKALINE PHOSPHATASE 74 U/L (38-126); ASPARTATE AMINO TRANSFERASE 17 U/L (14-36); BILIRUBIN,TOTAL 0.6 mg/dL (0.2-1.3)
[2019-09-06 06:10] LABS: TOTAL PROTEIN 6.6 g/dL (6.3-8.2)
[2019-09-06 06:20] LABS: FREE T3 3.13 pg/mL (2.77-5.27); FREE T4 (FREE THYROXINE) 1.31 ng/dL (0.78-2.19)
[2019-09-06 06:34] LABS: THYROID STIMULATING HORMONE 3.67 uIU/mL (0.47-4.68)
[2019-09-06] MEDS: CARVEDILOL 12.5 MG TABLET PO SCH (06:47)
[2019-09-06] MEDS: AMIODARONE HCL 200 MG TABLET PO SCH (06:47)
[2019-09-06 08:55] LABS: ANION GAP 8 (5-19); BLOOD UREA NITROGEN 47 mg/dL (7-20); CARBON DIOXIDE 25 mmol/L (22-30); CHLORIDE 105 mmol/L (98-107); GLUCOSE 109 mg/dL (75-110); POTASSIUM 4.4 mmol/L (3.6-5.0)
[2019-09-06] MEDS: AMLODIPINE BESYLATE 2.5 MG TABLET PO SCH (09:08)
[2019-09-06] MEDS: ENOXAPARIN SODIUM INJ 40 MG/0.4 ML DISP.SYRIN SUBCUT SCH (09:08)
[2019-09-06] MEDS: SACUBITRIL/VALSARTAN 49 MG/51 MG TABLET PO SCH (09:08)
[2019-09-06] MEDS ORDERED: FUROSEMIDE 20 MG TABLET PO SCH (10:00)
--- NOTE | 2019-09-06 11:19 | Progress Note ---
Provider Note Provider Note: CARDIOLOGY PROGRESS NOTE by Dr. Meliton Ho on 09/06/2019. OBJECTIVE: There is no further nonsustained VT on the monitor with the patient being on amiodarone. She denies any chest pain or discomfort. There is no shortness of breath. There is no PND orthopnea. There is no atrial arrhythmias seen. There is no recurrence of nonsustained ventricular tachycardia. There is no pauses or AV blocks. Her leg edema has resolved. There is no PND or orthopnea. 7 physical EXAMINATION: The patient is moderate to morbidly obese. In no acute distress. Selected Entries 09/06/19 07:25 Temperature 97.4 F Temperature Oral Source Pulse Rate 80 Respiratory 18 Rate Blood Pressure 118/58 L Blood Pressure 78 Mean BP Location Right Arm BP Position Supine O2 Sat by Pulse 99 Oximetry Oxygen Delivery Room Air Method HEAD: Is atraumatic normocephalic. EYES: Pupils are equal round regular reactive to light accommodation. Extraocular movements are normal. There is no conjunctival pallor. There is no scleral icterus. EARS: Tympanic membranes are intact. External auditory canals are clear. NOSE: There is no deviated nasal septum. There is no inflammation nasal mucous membrane. MOUTH: Mucous membranes of the mouth are moist. Tongue is moist. There is no ulcers. There is no bleeding from the gums. THROAT: There is no redness of the oropharynx. There is no exudates. SKIN: There is no skin rashes or skin lesions. There seems to be venous stasis dermatitis of the lower extremities. NECK: Supple. There seems to be mild JVD. Carotids are equal there is no bruit. There is no goiter. There is no lymphadenopathy. There is no accessory muscle respiration use. TRACHEA is central. LUNGS: There is a few bibasilar rales of CHF. There is no rhonchi wheezing. Heart: S1 is preserved. There is no S3 gallop there is no S4 gallop. Systolic murmur left sternal border and the apex there is no rub. ABDOMEN: Soft obese nontender there is hepatosplenomegaly bowel sounds are well heard. EXTREMITIES: Femorals are deep. Femorals are diminished there is no femoral bruits. Leg pulses are diminished. There is trace pedal edema bilaterally with early/mild venous stasis dermatitis. There is no cellulitis. There is no DVT. There is no cyanosis or clubbing. There is no calf tenderness. 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 PSYCHIATRIC: The patient judgment insight are intact her affect is normal, There is no accurate intake output record on this patient. Labs- All tests 24 hr 09/01/19 09/05/19 09/05/19 22:51 17:59 17:59 WBC 4.5 RBC 4.37 Hgb 12.6 Hct 38.5 MCV 88 MCH 28.9 MCHC 32.7 RDW 15.6 H Plt Count 201 Lymph % (Auto) 27.8 [place] % (Auto) 12.0 Eos % (Auto) 3.9 Baso % (Auto) 1.2 Absolute Neuts (auto) 2.5 Absolute Lymphs (auto) 1.2 Absolute Monos (auto) 0.5 Absolute Eos (auto) 0.2 Absolute Basos (auto) 0.1 Seg Neutrophils % 55.1 Sodium 136.7 L Potassium 4.3 Chloride 102 Carbon Dioxide 27 Anion Gap 8 BUN 47 H Creatinine 1.51 H Est GFR ( Amer) 41 L Est GFR (MDRD) Non-Af 34 L Glucose 192 H Calcium 8.8 Total Bilirubin 0.3 Direct Bilirubin 0.0 Neonat Total Bilirubin Not Reportable Neonat Direct Bilirubin Not Reportable Neonat Indirect Bili Not Reportable AST 17 ALT 23 Alkaline Phosphatase 72 Total Protein 7.3 6.3 Albumin 3.3 L Globulin 4.2 H Alb/Glob Ratio Alt Meth 0.8 Sfllu-8-Czxjmmpvj 0.3 Wfzyo-9-Wxjrwgawn 1.1 H Beta Globulins 1.1 Gamma Globulins 1.7 M-Kp Not Observed TSH Free T4 Free T3 pg/mL Immunoglobulin A 452 H Immunoglobulin G 1730 H Immunoglobulin M 100 Serum Immunofixation Comment Immunofixation Note Comment Albumin (HARJINDER) 3.1 09/06/19 09/06/19 09/06/19 05:09 05:09 05:09 WBC 4.2 RBC 4.33 Hgb 12.5 Hct 37.6 MCV 87 MCH 29.0 MCHC 33.3 RDW 15.7 H Plt Count 198 Lymph % (Auto) [place] % (Auto) Eos % (Auto) Baso % (Auto) Absolute Neuts (auto) Absolute Lymphs (auto) Absolute Monos (auto) Absolute Eos (auto) Absolute Basos (auto) Seg Neutrophils % Sodium Potassium Chloride Carbon Dioxide Anion Gap BUN Creatinine Est GFR ( Amer) Est GFR (MDRD) Non-Af Glucose Calcium Total Bilirubin 0.6 Direct Bilirubin 0.0 Neonat Total Bilirubin Not Reportable Neonat Direct Bilirubin Not Reportable Neonat Indirect Bili Not Reportable AST 17 ALT 20 Alkaline Phosphatase 74 Total Protein 6.6 Albumin 3.2 L Globulin Alb/Glob Ratio Alt Meth Rfqhc-7-Qifvbvapc Sxgrm-1-Copmzvtol Beta Globulins Gamma Globulins M-Kp TSH 3.67 Free T4 1.31 Free T3 pg/mL 3.13 Immunoglobulin A Immunoglobulin G Immunoglobulin M Serum Immunofixation Immunofixation Note Albumin (HARJINDER) 09/06/19 05:09 WBC RBC Hgb Hct MCV MCH MCHC RDW Plt Count Lymph % (Auto) [place] % (Auto) Eos % (Auto) Baso % (Auto) Absolute Neuts (auto) Absolute Lymphs (auto) Absolute Monos (auto) Absolute Eos (auto) Absolute Basos (auto) Seg Neutrophils % Sodium 137.7 Potassium 4.4 Chloride 105 Carbon Dioxide 25 Anion Gap 8 BUN 47 H Creatinine 1.40 H Est GFR ( Amer) 45 L Est GFR (MDRD) Non-Af 37 L Glucose 109 Calcium 9.0 Total Bilirubin Direct Bilirubin Neonat Total Bilirubin Neonat Direct Bilirubin Neonat Indirect Bili AST ALT Alkaline Phosphatase Total Protein Albumin Globulin Alb/Glob Ratio Alt Meth Hqhnx-2-Dgzbqeymd Wvtxo-6-Ydpwlivpq Beta Globulins Gamma Globulins M-Kp TSH Free T4 Free T3 pg/mL Immunoglobulin A Immunoglobulin G Immunoglobulin M Serum Immunofixation Immunofixation Note Albumin (HARJINDER) Lung Scan-VQ NM 08/31/19 00:00 IMPRESSION: NORMAL PERFUSION LUNG SCAN. Renal Ultrasound 08/31/19 00:00 IMPRESSION: 1. Bilateral kidneys are increased in echogenicity, suggesting chronic medical renal disease. 2. Echogenic foci in the kidneys may represent intrarenal stones. There is no hydronephrosis. 3. Bilateral simple renal cysts. 4. Area of shadowing in the region of the gallbladder fossa. The appearance suggests a gallbladder filled with stones. There is also suggestion of gallbladder wall thickening. Chest X-Ray 08/31/19 02:03 IMPRESSION: Chronic changes. Mild crowding at the bases.. Chest X-Ray 09/03/19 00:00 IMPRESSION: NO ACUTE FINDINGS. IMPRESSION/RECOMMENDATION: 1. Nonsustained medical tachycardia: In view of this would increase the patient's beta-benoit further. We will continue amiodarone. We will get a 30- day event monitor as outpatient. Later would schedule the patient for outpatient full PFT with DLCO as a baseline since the patient is being started on amiodarone. 2. Acute systolic left ventricular and right ventricular heart failure. [Suspect this is acute on chronic biventricular systolic heart failure. Continue diuretics and his Entresto. Her congestive heart failure now is well compensated. In view of the nonsustained ventricular tachycardia will further increase patient's Coreg to 37.25 milligrams p.o. twice daily. 3. Cardiomyopathy with moderately reduced LV ejection fraction 40%. Would recommend later once his CHF is treated and patient's compensated from a CHF will get a IV Lexiscan Cardiolite stress test to make sure patient does not have underlying coronary artery disease. 4. Severe pulmonary hypertension.: Suspect the patient has underlying sleep apnea. Part of the pulmonary hypertension secondary to left heart failure, and part due to most likely sleep apnea.. Continue amlodipine. 5. Hypertension: Blood pressure well controlled, . 6 Moderate to severe mitral regurgitation: Continue current treatment treatment of the heart failure will definitely improve the patient's mitral regurg. If this persists then the patient may need a BETY to see if she has some deformity of the mitral leaflet that can be corrected. 7. Moderate tricuspid regurgitation with moderate pulmonary hypertension. 8. Acute renal insufficiency. Avoid nephrotoxic drugs. Renal function has improved and now still a chronic kidney disease stage III. 9. The patient is on Cipro. The patient has no cough or any lung infection. With the stopping of pro renal function is marginally improved. 10. Most likely the patient has sleep apnea: Would recommend the patient have a sleep study done as an outpatient. 11. The patient has multiple CAD risk factors. Hence would recommend IV Lexiscan Cardiolite stress test when the CHF is compensated. This can be done as an outpatient. This is been discussed with the patient. Medications reviewed. Medical regimen and management plan discussed with attending provider, Dr. Rai. Medical decision making is of moderate complexity. Cardiac status is stable. 40-minute spent on the patient more than 50% time spent in direct patient care. We will sign off. Have the patient see me next week in the office. The patient has my cell phone number to call me if she has any cardiac problems.
[2019-09-06 14:59] VITALS: BP 94/57
--- NOTE | 2019-09-06 16:24 | PDOC DISCHARGE SUMMARY ---
Impression - Admit/DC Date/PCP Admission Date/Primary Care Provider: 08/31/19 05:17 MARGIE COPE MD Discharge Date: 09/06/19 - Discharge Diagnosis (1) Acute hypoxemic respiratory failure Is this a current diagnosis for this admission?: Yes (2) Acute systolic heart failure Is this a current diagnosis for this admission?: Yes (3) CKD (chronic kidney disease) Is this a current diagnosis for this admission?: Yes (4) Nonsustained ventricular tachycardia Is this a current diagnosis for this admission?: Yes (5) Pulmonary hypertension Is this a current diagnosis for this admission?: Yes - Additional Information Discharge Diet: Cardiac Discharge Activity: Activity As Tolerated, Balance Activity w/Rest, Weigh Daily Referrals: MARGIE COPE MD [Primary Care Provider] - 09/13/19 10:30 am (You have an outpatient PFT appointment scheduled for 09/15/2019 at 1:00pm. Arrive 15 minutes prior at the front entrance.) Prescriptions: Carvedilol 25 mg PO BID #60 tablet Amiodarone HCl [Cordarone 200 mg Tablet] 200 mg PO Q12A #60 tablet Sacubitril/Valsartan [Entresto 49 mg/51 mg Tablet] 1 tab PO BID #60 tablet Furosemide [Lasix 20 mg Tablet] 20 mg PO DAILY #90 tablet Amlodipine Besylate [Norvasc 2.5 mg Tablet] 5 mg PO DAILY #30 tablet Home Medications: Amiodarone HCl [Cordarone 200 mg Tablet] 200 mg PO Q12A #60 tablet 09/06/19 Amlodipine Besylate [Norvasc 2.5 mg Tablet] 5 mg PO DAILY #30 tablet 09/06/19 Carvedilol 25 mg PO BID #60 tablet 09/06/19 Furosemide [Lasix 20 mg Tablet] 20 mg PO DAILY #90 tablet 09/06/19 Sacubitril/Valsartan [Entresto 49 mg/51 mg Tablet] 1 tab PO BID #60 tablet 09/06/19 History of Present Illiness History of Present Illness: MELY WILD is a 68 year old female, She came to the emergency room earlier this morning for evaluation of shortness of breath, in the emergency room she was evaluated, she was found to be wheezing, it was assumed she has COPD, she has no history of COPD, she was treated with Solu-Medrol, bronchodilators, the breathing was supported with a noninvasive positive pressure ventilation,BIPAP, blood work demonstrated elevated B type natruretic peptide, the serum creatinine was elevated, she also was empirically started on intravenous heparin for presumptive PE. She has a history of hypertension, chronic lymphedema of the lower extremities and she is also obese. When I saw the patient the presentation was more consistent with CHF picture, she admitted to orthopnea. A transthoracic echocardiogram was done, it demonstrated dilated left ventricle, dilated left atrium, decreased ejection fraction of left ventricle suggestive of acute systolic heart failure this is new onset for this patient, she has no history of cardiomyopathy. Hospital Course Hospital Course: Patient was admitted for the management of acute hypoxemic respiratory failure due to acute systolic heart failure. She was treated with intravenous furosemide, Entresto, beta-benoit carvedilol. A transthoracic echocardiogram was obtained, the estimated ejection fraction was 40%. She was seen in consultation by cardiology. She had episode of nonsustained ventricular tachycardia, the beta-benoit dose was optimized and she also was started on amiodarone. The plan is for patient to have outpatient stress test to rule out underlining coronary artery disease.Patient is presently optimized medically ready for discharge today Physical Exam Vital Signs: Temp Pulse Resp BP Pulse Ox 98.0 F 76 18 94/57 L 95 09/06/19 14:58 09/06/19 14:58 09/06/19 14:58 09/06/19 14:58 09/06/19 14:58 Intake & Output 09/05/19 09/06/19 09/07/19 06:59 06:59 06:59 Intake Total 1089 400 Output Total 400 Balance 689 400 Weight 107.3 kg 107.3 kg General appearance: PRESENT: no acute distress Eye exam: PRESENT: PERRLA Respiratory exam: PRESENT: clear to auscultation césar Cardiovascular exam: PRESENT: +S1, +S2 GI/Abdominal exam: PRESENT: soft Neurological exam: PRESENT: alert Results Laboratory Results: WBC 4.2 10^3/uL (4.0-10.5) 09/06/19 05:09 RBC 4.33 10^6/uL (3.72-5.28) 09/06/19 05:09 Hgb 12.5 g/dL (12.0-15.5) 09/06/19 05:09 Hct 37.6 % (36.0-47.0) 09/06/19 05:09 MCV 87 fl (80-97) 09/06/19 05:09 MCH 29.0 pg (27.0-33.4) 09/06/19 05:09 MCHC 33.3 g/dL (32.0-36.0) 09/06/19 05:09 RDW 15.7 % (11.5-14.0) H 09/06/19 05:09 Plt Count 198 10^3/uL (150-450) 09/06/19 05:09 Lymph % (Auto) 27.8 % (13-45) 09/05/19 17:59 [place] % (Auto) 12.0 % (3-13) 09/05/19 17:59 Eos % (Auto) 3.9 % (0-6) 09/05/19 17:59 Baso % (Auto) 1.2 % (0-2) 09/05/19 17:59 Absolute Neuts (auto) 2.5 10^3/uL (1.7-8.2) 09/05/19 17:59 Absolute Lymphs (auto) 1.2 10^3/uL (0.5-4.7) 09/05/19 17:59 Absolute Monos (auto) 0.5 10^3/uL (0.1-1.4) 09/05/19 17:59 Absolute Eos (auto) 0.2 10^3/uL (0.0-0.6) 09/05/19 17:59 Absolute Basos (auto) 0.1 10^3/uL (0.0-0.2) 09/05/19 17:59 Seg Neutrophils % 55.1 % (42-78) 09/05/19 17:59 PT 14.4 SEC (11.4-15.4) 08/31/19 10:45 INR 1.12 08/31/19 10:45 APTT 31.9 SEC (23.5-35.8) 08/31/19 10:45 D-Dimer 2.43 ug/mL (0.00-0.50) H 08/31/19 02:05 Carbonic Acid 1.08 mmol/L (1.05-1.35) 08/31/19 06:45 HCO3/H2CO3 Ratio 19:1 08/31/19 06:45 ABG pH 7.39 (7.35-7.45) 08/31/19 06:45 ABG pCO2 36.0 mmHg (35-45) 08/31/19 06:45 ABG pO2 106.4 mmHg (80-100) H 08/31/19 06:45 ABG HCO3 21.2 mmol/L (20-24) 08/31/19 06:45 ABG Total CO2 22.3 mmol/L (21-25) 08/31/19 06:45 ABG O2 Saturation 97.9 % (94-98) 08/31/19 06:45 ABG Base Excess -3.2 mmol/L 08/31/19 06:45 VBG pH 7.35 (7.30-7.42) 08/31/19 05:35 VBG pCO2 44.8 mmHg (35-63) 08/31/19 05:35 VBG HCO3 23.9 mmol/L (20-32) 08/31/19 05:35 VBG Base Excess -1.9 mmol/L 08/31/19 05:35 FiO2 30% 08/31/19 06:45 Sodium 137.7 mmol/L (137-145) 09/06/19 05:09 Potassium 4.4 mmol/L (3.6-5.0) 09/06/19 05:09 Chloride 105 mmol/L (98-107) 09/06/19 05:09 Carbon Dioxide 25 mmol/L (22-30) 09/06/19 05:09 Anion Gap 8 (5-19) 09/06/19 05:09 BUN 47 mg/dL (7-20) H 09/06/19 05:09 Creatinine 1.40 mg/dL (0.52-1.25) H 09/06/19 05:09 Est GFR ( Amer) 45 (>60) L 09/06/19 05:09 Est GFR (MDRD) Non-Af 37 (>60) L 09/06/19 05:09 Glucose 109 mg/dL (75-110) 09/06/19 05:09 Hemoglobin A1c % 6.1 % (4.7-6.0) H 09/01/19 04:49 Calcium 9.0 mg/dL (8.4-10.2) 09/06/19 05:09 Phosphorus 5.1 mg/dL (2.5-4.5) H 08/31/19 02:05 Magnesium 2.1 mg/dL (1.6-2.3) 09/04/19 04:34 Total Bilirubin 0.6 mg/dL (0.2-1.3) 09/06/19 05:09 Direct Bilirubin 0.0 mg/dL (0.0-0.4) 09/06/19 05:09 Neonat Total Bilirubin Not Reportable 09/06/19 05:09 Neonat Direct Bilirubin Not Reportable 09/06/19 05:09 Neonat Indirect Bili Not Reportable 09/06/19 05:09 AST 17 U/L (14-36) 09/06/19 05:09 ALT 20 U/L (<35) 09/06/19 05:09 Alkaline Phosphatase 74 U/L (38-126) 09/06/19 05:09 Ammonia < 8.7 umol/L (9-33) L 08/31/19 06:45 Creatine Kinase 173 U/L (30-135) H 08/31/19 18:35 CK-MB (CK-2) 3.37 ng/mL (<4.55) 08/31/19 18:35 Troponin I 0.047 ng/mL 08/31/19 18:35 NT-Pro-B Natriuret Pep 1260 pg/mL (<125) H 09/03/19 05:22 Total Protein 6.6 g/dL (6.3-8.2) 09/06/19 05:09 Albumin 3.2 g/dL (3.5-5.0) L 09/06/19 05:09 Globulin 4.2 g/dL (2.2-3.9) H 09/01/19 22:51 Alb/Glob Ratio Alt Meth 0.8 (0.7-1.7) 09/01/19 22:51 Vhnei-6-Rktbvqqcp 0.3 g/dL (0.0-0.4) 09/01/19 22:51 Iiwmz-9-Jjckhezjk 1.1 g/dL (0.4-1.0) H 09/01/19 22:51 Beta Globulins 1.1 g/dL (0.7-1.3) 09/01/19 22:51 Gamma Globulins 1.7 g/dL (0.4-1.8) 09/01/19 22:51 M-Kp Not Observed g/dL (Not Observ) 09/01/19 22:51 Triglycerides 113 mg/dL (<150) 09/01/19 04:49 Cholesterol 159.77 mg/dL (0-200) 09/01/19 04:49 LDL Cholesterol Direct 94 mg/dL (<100) 09/01/19 04:49 VLDL Cholesterol 22.0 mg/dL (10-31) 09/01/19 04:49 HDL Cholesterol 63 mg/dL (>40) 09/01/19 04:49 Amylase 74 U/L (30-110) 08/31/19 02:05 TSH 3.67 uIU/mL (0.47-4.68) 09/06/19 05:09 Free T4 1.31 ng/dL (0.78-2.19) 09/06/19 05:09 Free T3 pg/mL 3.13 pg/mL (2.77-5.27) 09/06/19 05:09 Immunoglobulin A 452 mg/dL (87-352) H 09/01/19 22:51 Immunoglobulin G 1730 mg/dL (586-1602) H 09/01/19 22:51 Immunoglobulin M 100 mg/dL (26-217) 09/01/19 22:51 Serum Immunofixation Comment (.) 09/01/19 22:51 Immunofixation Note Comment (.) 09/01/19 22:51 Urine Color YELLOW 09/04/19 07:32 Urine Appearance CLEAR 09/04/19 07:32 Urine pH 5.0 (5.0-9.0) 09/04/19 07:32 Ur Specific [place] 1.016 09/04/19 07:32 Urine Protein NEGATIVE mg/dL (NEGATIVE) 09/04/19 07:32 Urine Glucose (UA) NEGATIVE mg/dL (NEGATIVE) 09/04/19 07:32 Urine Ketones NEGATIVE mg/dL (NEGATIVE) 09/04/19 07:32 Urine Blood NEGATIVE (NEGATIVE) 09/04/19 07:32 Urine Nitrite NEGATIVE (NEGATIVE) 09/04/19 07:32 Urine Bilirubin NEGATIVE (NEGATIVE) 09/04/19 07:32 Urine Urobilinogen NEGATIVE mg/dL (<2.0) 09/04/19 07:32 Ur Leukocyte Esterase NEGATIVE (NEGATIVE) 09/04/19 07:32 Urine WBC (Auto) 2 /HPF 09/04/19 07:32 Urine RBC (Auto) 0 /HPF 09/04/19 07:32 U Hyaline Cast (Auto) 1 /LPF 08/31/19 06:45 Urine Bacteria (Auto) TRACE /HPF 09/04/19 07:32 Squamous Epi Cells Auto 2 /HPF 09/04/19 07:32 Urine Mucus (Auto) RARE /LPF 09/04/19 07:32 Urine Total Protein 8.9 mg/dL (Not Estab.) 09/01/19 11:42 Urine Albumin 56.7 % (.) 09/01/19 11:42 U Ifjtq-3-Sdoespjd 6.7 % (.) 09/01/19 11:42 U Qemcz-4-Wmwthdti 11.2 % (.) 09/01/19 11:42 U Beta Globulin 16.7 % (.) 09/01/19 11:42 U Gamma Globulin 8.6 % (.) 09/01/19 11:42 U Random M-Kp (%) Not Observed % (Not Observ) 09/01/19 11:42 Urine PEP Note Comment (.) 09/01/19 11:42 Urine Ascorbic Acid NEGATIVE (NEGATIVE) 09/04/19 07:32 Urine Opiates Screen NEGATIVE 08/31/19 06:45 Urine Methadone Screen NEGATIVE 08/31/19 06:45 Ur Barbiturates Screen NEGATIVE 08/31/19 06:45 Ur Phencyclidine Scrn NEGATIVE 08/31/19 06:45 Ur Amphetamines Screen NEGATIVE 08/31/19 06:45 U Benzodiazepines Scrn NEGATIVE 08/31/19 06:45 Urine Cocaine Screen NEGATIVE 08/31/19 06:45 U Marijuana (THC) Screen NEGATIVE 08/31/19 06:45 Albumin (HARJINDER) 3.1 g/dL (2.9-4.4) 09/01/19 22:51 SARS-CoV-2 (PCR) NEGATIVE (NEGATIVE) 08/31/19 03:15 08/31/19 08/31/19 08/31/19 02:05 06:45 10:45 CK-MB (CK-2) 2.53 2.88 Troponin I 0.050 0.074 0.059 NT-Pro-B Natriuret Pep 3850 H 08/31/19 09/03/19 18:35 05:22 CK-MB (CK-2) 3.37 Troponin I 0.047 NT-Pro-B Natriuret Pep 1260 H Impressions: Lung Scan-VQ NM 08/31/19 00:00 IMPRESSION: NORMAL PERFUSION LUNG SCAN. Renal Ultrasound 08/31/19 00:00 IMPRESSION: 1. Bilateral kidneys are increased in echogenicity, suggesting chronic medical renal disease. 2. Echogenic foci in the kidneys may represent intrarenal stones. There is no hydronephrosis. 3. Bilateral simple renal cysts. 4. Area of shadowing in the region of the gallbladder fossa. The appearance suggests a gallbladder filled with stones. There is also suggestion of gallbladder wall thickening. Chest X-Ray 08/31/19 02:03 IMPRESSION: Chronic changes. Mild crowding at the bases.. Chest X-Ray 09/03/19 00:00 IMPRESSION: NO ACUTE FINDINGS. Stroke Is this a Stroke Patient?: No Acute Heart Failure - Is this a Heart Failure Patient?: Yes Documentation of LVEF assessment?: Yes LVEF: LVEF Less Than or Equal to 40% Anticoagulant Therapy: N/A Discharged on Evidence-Based Beta Blockers: Yes Discharged on ARNI?: Yes Discharged on ARB?: N/A-Discharged on ARNI Discharged on ACEI?: N/A Discharged on ARNI For LVEF <35%, discharged on Aldosterone Antagonist?: N/A (LVEF > or = 35%) Follow-up Appointment scheduled within 7 days?: Yes
== END 2019-09-06 17:45 | disposition home health service (06) | DRG 291 ==
LOC: ER 01:42 → EH 05:17 → 3W 07:28
PROVIDERS: ADMIT Internal Medicine; ATTEND Internal Medicine
DX: I13.0 Hypertensive heart and chronic kidney disease with heart failure and stage 1 through stage 4 chronic kidney disease, or unspecified chronic kidney disease (principal); J96.02 Acute respiratory failure with hypercapnia; I50.21 Acute systolic (congestive) heart failure; I50.23 Acute on chronic systolic (congestive) heart failure; N17.9 Acute kidney failure, unspecified; N39.0 Urinary tract infection, site not specified; I47.2 Ventricular tachycardia; B96.4 Proteus (mirabilis) (morganii) as the cause of diseases classified elsewhere; N18.9 Chronic kidney disease, unspecified; J44.9 Chronic obstructive pulmonary disease, unspecified; I08.1 Rheumatic disorders of both mitral and tricuspid valves; I27.20 Pulmonary hypertension, unspecified; G47.30 Sleep apnea, unspecified; Z86.711 Personal history of pulmonary embolism; Z86.718 Personal history of other venous thrombosis and embolism
CPT/HCPCS: 36415; 36600; 71045; 76775; 78580; 80048; 80053; 80061; 80076; 80307; 81001; 82140; 82150; 82550; 82553; 82803; 83036; 83735; 83880; 84100; 84166; 84439; 84443; 84481; 84484; 85025; 85027; 85379; 85610; 85730; 86320; 87040; 87086; 87088; 87186; 87635; 93005; 93010; 93306; 94640; 96374; 99285; A9540; C9803; J0744; J1644; J1650; J1940; J7620; Q9969

== ENCOUNTER → 2020-02-01 | Outpatient (CLI) | payer MEDICARE ==
[2020-02-01 09:37] LABS: ALBUMIN 3.7 g/dL (3.5-5.0); ALKALINE PHOSPHATASE 74 U/L (38-126); ASPARTATE AMINO TRANSFERASE 23 U/L (14-36); BILIRUBIN,DIRECT 0.1 mg/dL (0.0-0.4); BILIRUBIN,TOTAL 0.4 mg/dL (0.2-1.3); CHOLESTEROL 191.17 mg/dL (0-200); TOTAL PROTEIN 7.1 g/dL (6.3-8.2); TRIGLYCERIDES 83 mg/dL (<150)
[2020-02-01 09:47] LABS: DIRECT LDL 96 mg/dL (<100)
[2020-02-01 09:56] LABS: FREE T3 3.05 pg/mL (2.77-5.27); FREE T4 (FREE THYROXINE) 1.36 ng/dL (0.78-2.19)
[2020-02-01 10:10] LABS: THYROID STIMULATING HORMONE 6.89 uIU/mL (0.47-4.68)
== END ==
LOC: OD 08:38
PROVIDERS: ATTEND Specialist
DX: E78.5 Hyperlipidemia, unspecified (principal); Z79.899 Other long term (current) drug therapy
CPT/HCPCS: 36415; 80061; 80076; 84439; 84443; 84481

== ENCOUNTER → 2020-03-20 | Outpatient (CLI) | payer MEDICARE ==
--- NOTE | 2020-03-20 10:44 | WOMENS IMAGING REPORT ---
EXAM DESCRIPTION: 3D SCREENING MAMMO BILAT IMAGES COMPLETED DATE/TIME: 03/20/2020 10:04 am REASON FOR STUDY: Z12.31 ENCNTR SCREEN MAMMOGRAM FOR MALIGNANT NEOPLASM OF BREAST Z12.31 ENCNTR SCR EEN MAMMOGRAM FOR MALIGNANT NEOPLASM OF RANDEE COMPARISON: 03/08/2019, 02/15/2018, 02/03/2017, and 01/31/2016. EXAM PARAMETERS: Standard craniocaudal and mediolateral oblique views of each breast recorded using digital acquisition and breast tomosynthesis. Read with the assistance of CAD. .[facility] - R2 [employer] Systems Engineer Version 9.2 LIMITATIONS: None. FINDINGS: Findings present which are benign by mammographic criteria. No suspicious masses, calcific ations or architectural distortion. Pertinent benign findings: Stable calcified mass in the left breast, most consistent with a fibroaden albin. Stable focal asymmetry in the upper-outer right breast. Benign mammographic findings may include one or more of the following: Smooth masses, popcorn/rim/coa rse calcifications, asymmetries, post-procedure changes, and lesions with long-standing stability. IMPRESSION: BENIGN MAMMOGRAPHIC FINDINGS. BIRADS 2 BREAST DENSITY: b. There are scattered areas of fibroglandular density. BIRAD: ASSESSMENT: 2 BENIGN FINDING(S) RECOMMENDATION: ROUTINE SCREENING COMMENT: The patient has been notified of the results by letter per MQSA requirements. Additional no tification policies are in place for contacting patient with suspicious or incomplete findings. Quality ID #[id number]: The [employer] recommends an annual screening mammogram for women aged 40 years or over. This facility utilizes a reminder system to ensure that all patients receive reminder letters, and/or direct phone calls for appointments. This includes reminders for routine scr eening mammograms, diagnostic mammograms, or other Breast Imaging Interventions when appropriate. Th is patient will be placed in the appropriate reminder system. TECHNICAL DOCUMENTATION: FINDING NUMBER: (1) ASSESSMENT: (1) JOB ID: [id number] 2010 [employer]- All Rights Reserved Reading location - IP/workstation name: [email or web address]
== END ==
LOC: WI 09:38
PROVIDERS: ATTEND Internal Medicine
DX: Z12.31 Encounter for screening mammogram for malignant neoplasm of breast (principal)
CPT/HCPCS: 77063; 77067